=== PATIENT | female | born 1955 | race Caucasian/White ===

== ENCOUNTER 2017-10-16 15:30 | Outpatient (RCR) | payer OTHER, SELFPAY ==
--- NOTE | 2017-08-11 10:57 | HP.PTEVAL_ITS ---
Patient's Visit Information ROOSEVELT ROJAS is a 62 year old F referred to Physical Therapy by Nelson Purdy DPM with a diagnosis of L plantar fascitis. Date of Evaluation: 08/11/17 Physical Therapist: Santo Candelaria PT, - Visit Plan Frequency: 2x /Week Duration: 4 Weeks Plan: Start with ultrasound then perform stretching and soft tissue work to plantar fascia and triceps surae. Joint mobilizations to talocrual joint. Check hip mobility in future. - Subjective Subjective: Pt is 62 y/o female with diagnosis of plantar fascitis. This started about 4-5 weeks ago with no LAM. She was in a walking boot for about 3 weeks and just progressed to the shoe with inserts about a week ago. This affects her walking and standing quite a bit. She denies any history of this. Low back has been bothering her too a little since started. 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 PALPATION: TTP plantar fascia insertion, soleus palpation reproduces heel pain. ROM: R ankle DF/PF 4- 60, L ankle DF/PF 6-60. STRENGTH: B gross 5/5. ASSESSORY: Hypomobile posterior talocural glide. GAIT: ambulates with antalgic gait decrease stance time left - Goals Goal 1:: Pt will demonstrate 15 degrees of active dorsiflexion to normalize gait mechanics. Goal Time Frame: 4-6 Weeks Goal 2:: Pt will report ability to ambulate greater than 30 minutes without antalgic gait to improve tolerance with proglonged ambulation. Goal Time Frame: 4-6 Weeks Goal 3:: Pt will report 10 point gain on LEFS to demonstrate an improvement in function and QOL. Goal Time Frame: 4-6 Weeks Goal 4:: Pt will be independent with HEP to sustain gains made in the clinic. Goal Time Frame: 4-6 Weeks Goal 5:: Pt will ascend/descend 12 stairs with reciprocal gait pattern to normalize prior functional mobility. Goal Time Frame: 4-6 Weeks - Rehabilitation Potential Physical Therapy Diagnosis: Pt is a 62 y/o female with diagnosis of L plantar fascitis. This started about 4-5 weeks ago and is gradually improving. Objectively, she has impairments that include decreased passive dorsiflexion ROM , loss of medial longitudinal arch integrity, and decreased soft tissue mobility of the plantar fascia and triceps surae. She has activity limitations that include decreased tolerance with prolonged walking and standing. This affects her participation with work related and leisure activities. Pt will benefit from skilled PT to address the mentioned impairments to maximize functional potential. Rehabilitation Potential: Good - Anticipated Interventions Patient/Client Instruction: Educate patient on: Condition, Plan of Care For the Purpose of:: To decrease pain, To increase ROM, To improve muscle performance and motor function, To increase tolerance to activity/condition/ position, To improve ability of physical actions for home/community/work/leisure , To improve gait and locomotor functions, To decrease soft tissue restriction, To increase flexibility/ROM, To reduce risk of recurrence, To improve self management Therapeutic Exercise to Include: Strength training, Endurance training, Flexibilty training, Gait and locomotor training, Active ROM For the Purpose of:: To decrease pain, To increase ROM, To improve muscle performance and motor function, To increase tolerance to activity/condition/ position, To improve ability of physical actions for home/community/work/leisure , To improve gait and locomotor functions, To improve health of tissue, To decrease soft tissue restriction, To increase flexibility/ROM, To reduce risk of recurrence, To improve self management Manual Therapy Techniques to Include: Mobilization, Passive ROM, Soft tissue mobilization For the Purpose of:: To decrease pain, To increase ROM, To improve muscle performance and motor function, To increase tolerance to activity/condition/ position, To improve ability of physical actions for home/community/work/leisure , To improve gait and locomotor functions, To improve health of tissue, To decrease soft tissue restriction, To increase flexibility/ROM Cryotherapy (ice pack, ice massage): Yes Thermo therapy (hot pack): Yes Ultrasound (thermal/non thermal): Yes For the Purpose of:: To decrease pain, To decrease swelling/inflammation, To increase ROM, To improve nutrient delivery to tissue, To improve muscle performance and motor function, To increase tolerance to activity/condition/ position, To improve ability of physical actions for home/community/work/leisure , To improve gait and locomotor functions, To improve health of tissue, To decrease soft tissue restriction, To increase flexibility/ROM Thank you for the opportunity to evaluate your patient. For Medicare and Medicare HMO plans, please review the plan of care and approve it. It will need to be FAXED BACK to us at [phone] for Medicare purposes. Please let me know if there are questions or concerns regarding this plan of care. Physician Signature: Date:
--- NOTE | 2017-10-16 16:20 | HP.PTDCSUM_ITS ---
HP - PT D/C Summary It has been my pleasure to treat ROOSEVELT ROJAS under orders from Nelson Purdy DPM, for the diagnosis of L plantar fascitis for a total of 13 visit(s ). Discharge Date: Please see the following information for a summary of their discharge status. - Subjective Subjective: Doing better today less soreness middle calaneous. Wearing shoe today. Seen DR today. - Pain L foot Pain Intensity (Out of 10): 2 - Overall Improvement % Improvement: 70 - Objective Objective/Function: POSTURE: pes cavus. NEURO: denies parathesia/tingling. MMT : 4/5. GAIT: mild antalgic left foot. PALPATION: tender calcaneal mild/mod. ROM: DF 5 DEGREES,PF65 DEGREES,EV 5 DEGREES,INVERSION 35 - Goals Goal 1:: Pt will demonstrate 15 degrees of active dorsiflexion to normalize gait mechanics. Goal 2:: Pt will report ability to ambulate greater than 30 minutes without antalgic gait to improve tolerance with proglonged ambulation. Goal 3:: Pt will report 10 point gain on LEFS to demonstrate an improvement in function and QOL. Goal 4:: Pt will be independent with HEP to sustain gains made in the clinic. Goal 5:: Pt will ascend/descend 12 stairs with reciprocal gait pattern to normalize prior functional mobility. - Plan Plan: D/C TO HOME - D/C Information If there are questions or concerns regarding this patient's physical therapy, please feel free to call me at [phone]. Thank you for the referral of this patient. Sincerely, Santo Candelaria, PT,
== END 2017-10-16 19:00 | disposition home or self-care (01) ==
LOC: PT 15:30
PROVIDERS: Family Provider Student in an Organized Health Care Education/Training Program; PCP Student in an Organized Health Care Education/Training Program; Visit Provider Podiatrist Foot & Ankle Surgery
DX: M72.2 Plantar fascial fibromatosis (principal)
CPT/HCPCS: 97035; 97140; 97162; 97530

== ENCOUNTER 2020-03-18 16:30 | Outpatient (RCR) | payer OTHER, SELFPAY ==
--- NOTE | 2019-12-18 17:01 | HP.PTEVAL_ITS ---
Patient's Visit Information ROOSEVELT ROJAS is a 64 year old F referred to Physical Therapy by Dr. Kendall Leal MD with a diagnosis of R shoulder impingement.. Date of Evaluation: 12/18/19 Physical Therapist: Derrek Sewell, OSIELT, OCS, CSCS - Visit Plan Frequency: 1-2x /Week Duration: 4 Weeks Plan: weekly to 2x/week for 2-4 weeks for. 1. progression weekly of home ROM to strengthening of posture and RC and scap. May need to increase frequency for mobs, US, if not improving >60% by next session. - Subjective Fell and hurt R shoulder November 17. Fell going up 3rd flight of stairs and tripped on straps in bag. she did not fall to ground but ran R shoulder into wall. Hurt immeidately and no previous history. Made it throught the day and then urgent care that pm. X ray and no broken bones. Started to feel better so she cancelled f/u and then got worse again. Referred to Dr. Leal who gave an injection one week ago which took care of 70% of it. Has more movement but reaching up at [facility] still hurts as does washing back. 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 Has not missed work but hard to carry purse or bag. Can type OK. Getting dresed is easier since injection but is not easy or perfect. Reaching for coffee cup on second shelf is hard. Sleep is not terrible but uncomfy when awake, does not wake her up. Any reaching into dryer or [place] is hard. Comfortable at rest. - Pain R shoulder Pain Intensity (Out of 10): 1 Pain Intensity Range: 0, 6 - Objective Fw head and forward scapular posture, tightness in pectorals. Cervical aROM WFL and without pain. L UE AROM WFL. R shoulder arom elevation painful at 110 but can go all the way, ext rot 45, L 65. IR slow on R but painful and full. elbow and wrist WFL adn without pain. reflexes 2/3 bi and tri. Sensation wNL to gross light touch. + HK and + neer impingement tests. - drop arm. - ext rotation lag test. - sulcus. Tenderness to aplaption maximally over supraspinatus tendon on R. - Goals Goal 1:: Full UE AROM without pain Goal Time Frame: 2-4 Weeks Goal 2:: Pt feel pain 95% better at 1/10 at wrost and manageable Goal Time Frame: 4-6 Weeks Goal 3:: Reach for coffee and across desk without pain with R arm. Goal Time Frame: 4-6 Weeks Goal 4:: I appropriate HEP to minimize future problems. Goal Time Frame: 4-6 Weeks - Rehabilitation Potential Physical Therapy Diagnosis: R shoulder impingement. Rehabilitation Potential: Good - Anticipated Interventions Patient/Client Instruction: Educate patient on: Condition, Plan of Care For the Purpose of:: To decrease pain, To increase ROM, To improve muscle performance and motor function, To improve performance and independence with ADL's, To improve ability of physical actions for home/community/work/leisure Therapeutic Exercise to Include: Strength training, Postural training, Flexibilty training, Neuromotor development, Passive ROM, Active ROM, Scapular Strength/Stabilization For the Purpose of:: To decrease pain, To increase ROM, To improve muscle performance and motor function, To increase tolerance to activity/condition/position, To improve ability of physical actions for home/community/work/leisure Manual Therapy Techniques to Include: Mobilization, Soft tissue mobilization For the Purpose of:: To increase ROM, To improve muscle performance and motor function, To increase tolerance to activity/condition/position Cryotherapy (ice pack, ice massage): Yes Ultrasound (thermal/non thermal): Yes For the Purpose of:: To decrease pain, To increase ROM Thank you for the opportunity to evaluate your patient. For Medicare and Medicare HMO plans, please review the plan of care and approve it. It will need to be FAXED BACK to us at [phone] for Medicare purposes. For Medicare only, by signing this I certify the plan of care. Please let me know if there are questions or concerns regarding this plan of care. Physician Signature: Date:_
--- NOTE | 2020-01-23 17:02 | HP.PTREVAL ---
Dr. Kendall Leal MD, It has been my pleasure to treat ROOSEVELT ROJAS over the last 4 visits for R shoulder impingement.. Please see the progress note below for an update on the physical therapy plan of care! Subjective: Exercises one time per day. Not sure how well she is doing. Still hurts at times at random. Has been better avoiding aggravating activities. Reaching across body still hurts. arm got tired changing radio stations in car. Sleep is OK with the shoulder. Frustrated with lack of progress. Objective/Function: 140 aROM R shoulder and abduction, stiff at end range with firm end feel and painful. Fairly comfortable at rest. 50 external rotation. Hesitant to lift R UE. Reports compliance with ex but frustration with still painful.Wants to try more agggressive therapy vs back to doctor. Goals still appropriate for new POC over next 4 weeks. Plan Plan: 2-3x/week for 2-4 weeks for. 1. US nonthermal R supra. 2. Manual therapy for mobs inf and post and anterior grade 4 and PROM/arm pull to R UE. 3. progress strength of shoulder(pt doing phase 3 and LLA flexion, mil press at home) Goals Goal 1:: Full UE AROM without pain Goal Time Frame: 2-4 Weeks Goal Progress: slow progress, approp Goal 2:: Pt feel pain 95% better at 1/10 at wrost and manageable Goal Time Frame: 4-6 Weeks Goal Progress: 50% approp. Goal 3:: Reach for coffee and across desk without pain with R arm. Goal Time Frame: 4-6 Weeks Goal Progress: still hurts Goal 4:: I appropriate HEP to minimize future problems. Goal Time Frame: 4-6 Weeks Goal Progress: started. Anticipated Interventions Patient/Client Instruction: Educate patient on: Condition, Plan of Care For the Purpose of:: To decrease pain, To increase ROM, To improve muscle performance and motor function, To improve performance and independence with ADL's, To improve ability of physical actions for home/community/work/leisure Therapeutic Exercise to Include: Strength training, Postural training, Flexibilty training, Neuromotor development, Passive ROM, Active ROM, Scapular Strength/Stabilization For the Purpose of:: To decrease pain, To increase ROM, To improve muscle performance and motor function, To increase tolerance to activity/condition/position, To improve ability of physical actions for home/community/work/leisure Manual Therapy Techniques to Include: Mobilization, Soft tissue mobilization For the Purpose of:: To increase ROM, To improve muscle performance and motor function, To increase tolerance to activity/condition/position Cryotherapy (ice pack, ice massage): Yes Ultrasound (thermal/non thermal): Yes For the Purpose of:: To decrease pain, To increase ROM Please do not hesitate to contact me at [phone] by phone or if you have questions or concerns regarding this new plan of care! Sincerely, Derrek Sewell, DPT, OCS, CSCS
--- NOTE | 2020-02-13 10:03 | HP.PTREVAL ---
Dr. Kendall Leal MD, It has been my pleasure to treat ROOSEVELT ROJAS over the last 10 visits for R shoulder impingement.. Please see the progress note below for an update on the physical therapy plan of care! Subjective: No pain this morning. Had some last night with exercises. Slept on it wrong bothered her at night. Objective/Function: Full ext rotationa dn flexion/abd with slight pain end range. IR to psis to start then to L5 after stretching, very painful. Pt comfortable at rest. Plan Plan: 2x/week for 3 weeks for continue US adn mnaual and IR stretching which has been very helpful. Monitor home strengthening. Fair prognosis Goals Goal 1:: Full UE AROM without pain Goal Time Frame: 2-4 Weeks Goal Progress: Progressing Goal 2:: Pt feel pain 95% better at 1/10 at wrost and manageable Goal Time Frame: 4-6 Weeks Goal Progress: 85% Goal 3:: Reach for coffee and across desk without pain with R arm. Goal Time Frame: 4-6 Weeks Goal Progress: Progressing Goal 4:: I appropriate HEP to minimize future problems. Goal Time Frame: 4-6 Weeks Goal Progress: Goal Met Goal 5:: Pt feel 95% back to normal Goal Time Frame: 2-4 Weeks Goal Progress: NEW GOAL. Anticipated Interventions Patient/Client Instruction: Educate patient on: Condition, Plan of Care For the Purpose of:: To decrease pain, To increase ROM, To improve muscle performance and motor function, To improve performance and independence with ADL's, To improve ability of physical actions for home/community/work/leisure Therapeutic Exercise to Include: Strength training, Postural training, Flexibilty training, Neuromotor development, Passive ROM, Active ROM, Scapular Strength/Stabilization For the Purpose of:: To decrease pain, To increase ROM, To improve muscle performance and motor function, To increase tolerance to activity/condition/position, To improve ability of physical actions for home/community/work/leisure Manual Therapy Techniques to Include: Mobilization, Soft tissue mobilization For the Purpose of:: To increase ROM, To improve muscle performance and motor function, To increase tolerance to activity/condition/position Cryotherapy (ice pack, ice massage): Yes Ultrasound (thermal/non thermal): Yes For the Purpose of:: To decrease pain, To increase ROM Please do not hesitate to contact me at [phone] by phone or if you have questions or concerns regarding this new plan of care! Sincerely, Derrek Sewell, DPT, OCS, CSCS
--- NOTE | 2020-03-18 17:03 | HP.PTDCSUM_ITS ---
It has been my pleasure to treat ROOSEVELT ROJAS referred by Dr. Kendall Leal MD, with the diagnosis of R shoulder impingement. for a total of 16 visit(s). Discharge Date: 03/18/20 Please see the following information for a summary of their discharge status. Subjective: Twinges now and then. Pain with reaching for bag persists. Overall 85% better. Not painfree though. R shoulder Pain Intensity (Out of 10): 2 % Improvement: 85 Objective/Function: 152 AROM flexion, 155 abduction with encouragement. Pain at end ranges. 78 ext rotation, L5 IR but hesitant. Strength is 4- r ext rottion, 4 IR, slight pain ext rotation. flexion and abduction are 4- with some minor d iscomfort. Overall much better than day one but progres has stagnated. Pt will continue HEP and contact doctor if needs more intervention. Goal 1:: Full UE AROM without pain Goal Progress: stagnant but functional Goal 2:: Pt feel pain 95% better at 1/10 at wrost and manageable Goal Progress: 85% Goal 3:: Reach for coffee and across desk without pain with R arm. Goal Progress: stagnant Goal 4:: I appropriate HEP to minimize future problems. Goal Progress: noncompliant, met Goal 5:: Pt feel 95% back to normal Goal Progress: Not Progressing Plan: d/c to HEP Discharge Comments: Pt to continue HEP and contact doctor if situation worsens. If there are questions or concerns regarding this patient's physical therapy, please feel free to call me at [phone]. Thank you for the referral of this patient. Sincerely, Derrek Sewell, DPT, OCS, CSCS
== END 2020-03-18 19:00 | disposition home or self-care (01) ==
LOC: PT 16:30
PROVIDERS: PCP Student in an Organized Health Care Education/Training Program; Referring Provider Orthopaedic Surgery; Visit Provider Orthopaedic Surgery
DX: M75.41 Impingement syndrome of right shoulder (principal); M25.511 Pain in right shoulder
CPT/HCPCS: 97035; 97110; 97140; 97161; 97164; 97530

== ENCOUNTER 2023-01-05 15:49 | Emergency (ER) | payer MEDICARE, SELFPAY ==
[2023-01-05 15:50] VITALS: BP 120/72; PULSE 84; RESP 16; TEMP 36.8; O2SAT 98; BMI 30.6
--- NOTE | 2023-01-05 16:20 | RAD_ITS ---
STUDY: X-RAY - LEFT KNEE REASON FOR EXAM: Female, 67 years old. fall TECHNIQUE: 3 view(s) of the knee. COMPARISON: None. FINDINGS: Normal visualized distal femur. Normal visualized proximal tibia and fibula. Normal proximal tibiofibular articulation. Mildly narrowed medial femorotibial compartment. Normal lateral femorotibial compartment. Normal patellofemoral articulation. The soft tissue structures are unremarkable. RAD/Knee 4 or More Views IMPRESSION: Mild degenerative change. No acute fracture or other significant bony pathology Electronically Signed: Lucio Geiger MD at 16:47 EST Reading Location ID and State: [address] [place] [address] Tel , Service support ,
--- NOTE | 2023-01-05 20:34 | EDS_ITS ---
HPI History of Present Illness HPI Narrative: Patient presents after a fall that occurred yesterday. Patient states she tripped and fell and landed on her left knee. Patient states her pain is sharp and aching. Patient states it is worse with weightbearing. Patient states it is better with rest. Patient denies any paresthesias or weakness. Patient admits to some mild pain over the right upper extremity. Patient thinks she caught herself with her right arm. Patient denies any other injuries. Chief Complaint: Fall Informant: patient Occured/Mechanism Mechanism/Context: Yes fall Onset/Context/Timing Onset: Yesterday Context: Sudden Onset Timing: Continuous Quality of Pain: Sharp and Aching Location: Left knee Worsened by: Weightbearing Relieved by: Rest Associated Symptoms Associated Symptoms: Negative for Parasthesia or Weakness PFSH PFSH Medical History no medical history no medical history Home Medications albuterol sulfate 90 mcg/actuation aerosol inhaler (Ventolin HFA) 1 puff inhalation Q6H PRN PRN Sob &/Or Wheezing 10/14/14 [History Last Taken Unknown] amlodipine 5 mg tablet 5 mg PO DAILY 10/14/14 [History Last Taken 09/02/16] cholecalciferol (vitamin D3) 125 mcg (5,000 unit) capsule 5,000 unit PO DAILY 10/14/14 [History Last Taken 09/02/16] metformin 1,000 mg tablet 1,000 mg PO BIDCM 10/14/14 [History Last Taken 09/02/16] omeprazole 10 mg capsule,delayed release 10 mg PO DAILY 10/14/14 [History Last Taken 09/02/16] sertraline 25 mg tablet (Zoloft) 25 mg PO BID 10/14/14 [History Last Taken 09/02/16] sitagliptin phosphate 25 mg tablet (Januvia) 25 mg PO QHS 10/14/14 [History Last Taken 09/01/16] trazodone 50 mg tablet 50 mg PO QHS 10/14/14 [History Last Taken 09/01/16] valsartan 160 mg tablet 160 mg PO QHS 10/14/14 [History Last Taken 09/01/16] gabapentin 300 mg capsule (Neurontin) 300 mg PO QHS 09/02/16 [History Last Taken 09/01/16] hydrocodone-acetaminophen 5-325mg 5mg-325mg 1 tab PO Q6H PRN PRN Pain ##10 09/02/16 [Rx Last Taken Unknown] insulin glargine 100 unit/mL (3 mL) subcutaneous pen (Lantus Solostar U-100 Insulin) 25 unit SQ QHS 09/02/16 [History Last Taken 09/01/16] hydrocodone-acetaminophen 5-325mg 5mg-325mg 1 tab PO Q6H PRN PRN Pain 3 days #10 TABLETS 01/05/23 [Rx Last Taken Unknown] Allergy/AdvReac Type Severity Reaction Status Date / Time gluten Allergy Upset Verified 01/05/23 15:50 Stomach Penicillins [PCN] Allergy Rash Verified 01/05/23 15:50 Sulfa (Sulfonamide Allergy Rash Verified 01/05/23 15:50 Antibiotics) chocolate flavor AdvReac stuffiness Verified 01/05/23 15:50 Surgical History (Updated 01/05/23 @ 21:[address] Derrek Rebolledo DO) Hx of cardiac catheterization Hx of cataract surgery Social History Smoking Status: Never smoker ROS ROS ED Constitutional Constitutional ED: Denies chills or fever(s) Eyes Eyes: Denies blurry vision or change in vision ENT ENT ED: Reports sore throat; Denies rhinorrhea Cardiovascular Cardiovascular: Denies chest pain or palpitations Respiratory/Chest Respiratory/Chest: Denies cough or dyspnea Gastrointestinal Gastrointestinal: Denies nausea or vomiting Genitourinary Genitourinary ED: Denies dysuria or hematuria Musculoskeletal Musculoskeletal: Reports neck pain; Denies back pain Integumentary Denies abscess or rash Neurologic Neurologic: Denies headache(s) or weakness Allergic/Immunologic Allergic/Immunologic ED: Denies mouth swelling or urticaria EXAM Physical Exam Const Vital Signs: 01/05/23 15:50 01/05/23 19:28 Temperature 98.2 F Temperature Source Temporal Pulse Rate 84 Respiratory Rate 16 Respiratory Effort Normal Non-Labored Respiratory Depth Normal Respiratory Pattern Normal Blood Pressure 120/72 Blood Pressure Mean 88 Pulse Ox 98 Oxygen Delivery Method Room Air Room Air Positive well nourished and well developed General Appearance ED: well developed and NAD HEENT Reports moist mucous membranes Neck full ROM and supple Extremity Extremity Narrative: There is tenderness, edema, and ecchymosis over the anterior aspect of the left knee. There is a very superficial abrasion over the anterior aspect of the left knee. Extensor mechanism is intact. There is no joint effusion noted. Range of motion is limited in all motions of the left knee secondary to pain. There is no laxity appreciated. Patient is guarding on exam however. Patient was intact to light touch bilaterally in the lower extremities. Length is 5/5 bilaterally in the lower extremities. Pedal pulses are equal bilaterally. Neuro oriented x3, CN's II-XII intact bilaterally, moves all extremities and no sensory deficits noted Sensorium / Orientation: alert Motor Exam: strength 5/5 throughout Psych mental status grossly normal MDM MDM MDM Narrative Medical decision making narrative: Differential diagnosis includes contusion, sprain, and fracture. X-rays of the left knee will be obtained to assess for fracture. Radiography Diagnostic Testing: Clinical Impression(s) from Imaging Studies Knee X-Ray 01/05/23 16:20 IMPRESSION: Mild degenerative change. No acute fracture or other significant bony pathology Electronically Signed: Lucio Geiger MD at 16:47 EST Reading Location ID and State: [address] [place] [address] Tel , Service support , X-rays of the left knee were obtained. There are 4 views. On my independent interpretation, there is no acute fracture. There is no joint effusion noted. There are some mild degenerative changes noted. Radiologist also interpreted the x-rays and agrees. Treatment and Re-Evaluation Narrative: Patient was advised of her findings. Patient was instructed to ice and elevate the left knee. Patient was given a knee immobilizer. Patient was given a prescription for a short course of [place]. Patient was instructed to follow-up with her primary care physician in 5 to 7 days. Patient understood and was agreeable with the plan. All questions were answered. Discharge Plan Triage Chief Complaint: Fall ED Provider: Derrek Rebolledo Dx/Rx/DC Orders Clinical Impression: Fall, Contusion of left knee, initial encounter Instructions: ED Soft Tissue Contusion Prescriptions: New hydrocodone-acetaminophen [hydrocodone-acetaminophen] 5-325 mg tablet 1 tab PO Q6H PRN PRN (Reason: Pain) 3 Days Qty: 10 0RF No Action trazodone 50 MG tablet 50 mg PO QHS Patient Comments: sleep aid amlodipine 5 MG tablet 5 mg PO DAILY Patient Comments: blood pressure omeprazole 10 MG capsule 10 mg PO DAILY Patient Comments: gerd metformin 1,000 MG tablet 1,000 mg PO BIDCM Patient Comments: diabetes valsartan 160 MG tablet 160 mg PO QHS Patient Comments: blood pressure sertraline [Zoloft] 25 MG tablet 25 mg PO BID Patient Comments: depression sitagliptin phosphate [Januvia] 25 MG tablet 25 mg PO QHS Patient Comments: diabetes albuterol sulfate [Ventolin HFA] 1 INHALER inhaler 1 puff inhalation Q6H PRN PRN (Reason: Sob &/Or Wheezing) Patient Comments: shortness of breath cholecalciferol (vitamin D3) 5,000 UNIT capsule 5,000 unit PO DAILY Patient Comments: supplement gabapentin [Neurontin] 300 MG capsule 300 mg PO QHS insulin glargine [Lantus Solostar U-100 Insulin] 100 UNIT/ML insulin pen 25 unit SQ QHS hydrocodone-acetaminophen 1 TABLET tablet 1 tab PO Q6H PRN PRN (Reason: Pain) Qty: 10 0RF Primary Care Provider: Marlon Jeffries Referrals: Marlon Jeffries DO [Primary Care Provider] - 5-7 Days Disposition Disposition: Home, Self Care
[2023-01-05] MEDS: HYDROcodone Bitartrate/Apap 5/325 Tablet PO (21:43)
[2023-01-05 21:52] VITALS: BP 136/77; PULSE 69; RESP 14; O2SAT 97
== END 2023-01-05 21:53 | disposition home or self-care (01) ==
PROVIDERS: Emergency Provider Emergency Medicine; PCP Student in an Organized Health Care Education/Training Program; Visit Provider Emergency Medicine
DX: S80.02XA Contusion of left knee, initial encounter (principal); M79.601 Pain in right arm; J06.9 Acute upper respiratory infection, unspecified; W19.XXXA Unspecified fall, initial encounter
CPT/HCPCS: 73564; 99282; A4216

== ENCOUNTER 2023-05-23 09:07 | Emergency (ER) | payer MEDICARE, SELFPAY ==
[2023-05-23 09:07] VITALS: BP 132/70; PULSE 94; RESP 14; TEMP 37.2; O2SAT 97; BMI 30.4
--- NOTE | 2023-05-23 09:17 | EX.ED.VIS.UR ---
HPI HPI - URI History of Present Illness Chief Complaint: Shortness of Breath Detail of Chief Complaint: Productive cough, wheezing, upper respiratory tract infectious symptoms and Informant: patient Onset/Context/Timing Onset: Days Context: Sudden Onset Timing: Continuous and Waxes and wanes Quality: Upper respiratory symptoms with nausea and vomiting Location: Respiratory and GI Current Severity: Mild Maximum Severity: Moderate Worsened by: Not Worsened By Swallowing, Eating Solids or Drinking Liquids Relieved by: Not Relieved By Tylenol Associated Symptoms Associated Symptoms: Positive for Nasal Congestion, Headache, Myalgias, Vomiting, Shortness of Breath and Productive Cough (Green thick sputum); Negative for Sinus Pressure, Diarrhea, Chest Pain or Hemoptysis Narrative Narrative: Patient is 88-year-old woman. She was in contact with 4 of her grandchildren who were sick with viral-like symptoms. She reports documented temperature to 102. She complains of aches, headache, rhinorrhea, congestion and sore throat. She had a change in voice. She has productive cough of green-colored sputum. She denies chest discomfort. She does report nausea and vomiting. Denies hematemesis or coffee-ground emesis. She denies diarrhea. She denies dysuria, frequency, urgency or hematuria. She endorses decreased urine output. She does endorse thirst and dry mouth. She is diabetic, type II on insulin. She denies rash. Prior similar symptoms: Yes Recent Illness/Hospitalization: No ROS ROS ED Constitutional Constitutional ED: Reports chills, fever(s), sweats and other Details: Documented Tmax 102.0 ?F ; Denies subjective Eyes Eyes: Denies blurry vision, change in vision or diplopia ENT ENT ED: Reports rhinorrhea and sore throat; Denies ear pain Cardiovascular Cardiovascular: Denies chest pain, orthopnea, palpitations, paroxysmal nocturnal dyspnea or racing heartbeat Respiratory/Chest Respiratory/Chest: Reports cough, dyspnea and dyspnea on exertion; Denies orthopnea or paroxysmal nocturnal dyspnea Gastrointestinal Gastrointestinal: Reports abdominal pain, nausea and vomiting; Denies constipation, diarrhea or melena Genitourinary Genitourinary ED: Denies dysuria, hematuria or urinary frequency Musculoskeletal Musculoskeletal: Denies arthralgias, back pain or myalgias Neurologic Neurologic: Reports weakness Hematologic/Lymphatic Hematologic/Lymphatic: Denies easy bleeding or easy bruising PFSH PFSH Home Medications albuterol sulfate 90 mcg/actuation aerosol inhaler (Ventolin HFA) 1 puff inhalation Q6H PRN PRN Sob &/Or Wheezing 10/14/14 [History Last Taken Unknown] amlodipine 5 mg tablet 5 mg PO DAILY 10/14/14 [History Last Taken 09/02/16] cholecalciferol (vitamin D3) 125 mcg (5,000 unit) capsule 5,000 unit PO DAILY 10/14/14 [History Last Taken 09/02/16] metformin 1,000 mg tablet 1,000 mg PO BIDCM 10/14/14 [History Last Taken 09/02/16] omeprazole 10 mg capsule,delayed release 10 mg PO DAILY 10/14/14 [History Last Taken 09/02/16] sertraline 25 mg tablet (Zoloft) 25 mg PO BID 10/14/14 [History Last Taken 09/02/16] sitagliptin phosphate 25 mg tablet (Januvia) 25 mg PO QHS 10/14/14 [History Last Taken 09/01/16] trazodone 50 mg tablet 50 mg PO QHS 10/14/14 [History Last Taken 09/01/16] valsartan 160 mg tablet 160 mg PO QHS 10/14/14 [History Last Taken 09/01/16] gabapentin 300 mg capsule (Neurontin) 300 mg PO QHS 09/02/16 [History Last Taken 09/01/16] hydrocodone-acetaminophen 5-325mg 5mg-325mg 1 tab PO Q6H PRN PRN Pain ##10 09/02/16 [Rx Last Taken Unknown] insulin glargine 100 unit/mL (3 mL) subcutaneous pen (Lantus Solostar U-100 Insulin) 25 unit SQ QHS 09/02/16 [History Last Taken 09/01/16] hydrocodone-acetaminophen 5-325mg 5mg-325mg 1 tab PO Q6H PRN PRN Pain 3 days #10 TABLETS 01/05/23 [Rx Last Taken Unknown] levofloxacin 500 mg tablet 500 mg PO DAILY #6 tabs 05/23/23 [Rx Last Taken Unknown] Allergy/AdvReac Type Severity Reaction Status Date / Time gluten Allergy Upset Verified 05/23/23 09:08 Stomach Penicillins [PCN] Allergy Rash Verified 05/23/23 09:08 Sulfa (Sulfonamide Allergy Rash Verified 05/23/23 09:08 Antibiotics) chocolate flavor AdvReac stuffiness Verified 05/23/23 09:08 Surgical History Hx of cardiac catheterization Hx of cataract surgery Social History (Updated 05/23/23 @ 09:[address] Rico Moody MD) household members: none Smoking Status: Never smoker substance use type: does not use EXAM Physical Exam Const Vital Signs: 05/23/23 09:07 05/23/23 09:46 05/23/23 11:24 Temperature 99 F 100.3 F H Temperature Source Temporal Oral Pulse Rate 94 88 Respiratory Rate 14 18 Respiratory Effort Short of Breath Respiratory Depth Normal Blood Pressure 132/70 H 134/70 H Blood Pressure Mean 90 91 Pulse Ox 97 92 Oxygen Delivery Method Room Air Room Air Positive well nourished, well developed and obese Constitutional Narrative: Patient appears ill. She does not appear toxic. General Appearance ED: well developed; Negative for cyanotic or diaphoretic Nutritional Appearance: obese HEENT Reports dry mucous membranes HEENT Narrative: Uvula is midline. No deviation with protrusion. There is no erythema or exudate. Patient does have nasal congestion/rhinorrhea. normocephalic and atraumatic Mouth ED: Yes dry mucous membranes Mouth: dry mucous membranes Eyes PERRL and EOMs intact bilaterally General Eye ED: Negative for pale conjunctiva or scleral icterus Neck no lymphadenopathy, supple, no meningeal signs and no JVD Resp normal respiratory effort Resp Narrative: Patient with adventitial breath sounds right greater than left. There is no expiratory wheezing noted this time. She did use her inhaler. Cardio S1 normal heart sound, S2 normal heart sound and no murmurs Rate: regular rate Rhythm: regular rhythm GI non-tender, non-distended and no masses Auscultation: normoactive bowel sounds Palpation: soft Extremity normal to inspection and full ROM Neuro oriented x3 and CN's II-XII intact bilaterally Sensorium / Orientation: alert Psych mental status grossly normal Skin General Skin Exam: Negative for jaundice Lesions: no lesions Rashes: no rashes MDM MDM MDM Narrative Medical decision making narrative: With documented fever and productive cough with green-colored sputum will obtain chest x-ray to evaluate for pneumonia. Since she is diabetic obtain BMP to assess glucose, anion gap and electrolytes as well as renal function. CBC to assess white count differentia Clinically she appears dehydrated. 1 L of normal saline was ordered. Zofran was ordered for her nausea and vomiting. Rapid antigen for COVID, influenza and RSV were negative. Since patient has an infiltrate productive cough febrile will treat with oral antibiotics. Lab Data Attestation: I reviewed the patient's lab results. Lab results narrative: White count slight elevated 11.8 thousand with mild shift. There is no bandemia. H&H is 10.8 and 32.7 with normal indices. Basic metabolic panel is remarked for glucose of 163 with a normal CO2 and anion gap. She is diabetic, type II on insulin. Labs: Laboratory Results - last 24 hr 05/23/23 09:40 WBC 11.8 H RBC 3.80 L Hgb 10.8 L Hct 32.7 L MCV 86.1 MCH 28.4 MCHC 33.0 RDW Std Deviation 39.8 RDW Coeff of Fly 12.8 Plt Count 179 MPV 10.3 Immature Gran % (Auto) 0.700 Neut % (Auto) 76.8 H Lymph % (Auto) 13.4 L [place] % (Auto) 8.0 Eos % (Auto) 0.8 Baso % (Auto) 0.3 Absolute Neuts (auto) 9.1 H Absolute Lymphs (auto) 1.58 Nucleated RBC % 0 Sodium 133 L Potassium 3.6 Chloride 100 Carbon Dioxide 27.0 Anion Gap 6 BUN 11 Creatinine 0.88 Estim Creat Clear Calc 59.01 Est GFR (MDRD) Af Amer 82 Est GFR (MDRD) Non-Af 68 BUN/Creatinine Ratio 12.5 Glucose 163 H Calcium 9.3 Radiography Chest X-Ray - ED: 2 View and Read by ED Physician (Is slightly rotated. There is increased interstitial markings left upper lobe. Suspect this is due to the fact that the inspiratory volume is not ideal and she is rotated. Cardiac silhouette and size normal. Perihilar region normal. Osseous structures unremarkable. There is no effusion noted.) Diagnostic Testing: Clinical Impression(s) from Imaging Studies Chest X-Ray 05/23/23 10:10 IMPRESSION: Focal left upper lobe infiltrate. Follow-up recommended. Electronically Signed: Rashawn Drummond MD at 10:46 EDT , Treatment and Re-Evaluation Narrative: Patient's nurse asked if she could use her inhaler. Nurse was informed that she could. When I examined her she had no wheezing. Curb 65 score is 1. She is considered low risk for 30-day mortality of 2.7%. Therefore she will be discharged home. Discharge Plan Triage Chief Complaint: Shortness of Breath ED Provider: Rico Moody Dx/Rx/DC Orders Clinical Impression: Left upper lobe pneumonia, Hyperlipidemia, Hypertension, Fever, Controlled type 2 diabetes mellitus with hyperglycemia, with long-term current use of insulin Instructions: ED Pneumonia (Adult) Prescriptions: New levofloxacin [levofloxacin] 500 mg tablet 500 mg PO DAILY Qty: 6 0RF No Action trazodone 50 MG tablet 50 mg PO QHS Patient Comments: sleep aid amlodipine 5 MG tablet 5 mg PO DAILY Patient Comments: blood pressure omeprazole 10 MG capsule 10 mg PO DAILY Patient Comments: gerd metformin 1,000 MG tablet 1,000 mg PO BIDCM Patient Comments: diabetes valsartan 160 MG tablet 160 mg PO QHS Patient Comments: blood pressure sertraline [Zoloft] 25 MG tablet 25 mg PO BID Patient Comments: depression sitagliptin phosphate [Januvia] 25 MG tablet 25 mg PO QHS Patient Comments: diabetes albuterol sulfate [Ventolin HFA] 1 INHALER inhaler 1 puff inhalation Q6H PRN PRN (Reason: Sob &/Or Wheezing) Patient Comments: shortness of breath cholecalciferol (vitamin D3) 5,000 UNIT capsule 5,000 unit PO DAILY Patient Comments: supplement gabapentin [Neurontin] 300 MG capsule 300 mg PO QHS insulin glargine [Lantus Solostar U-100 Insulin] 100 UNIT/ML insulin pen 25 unit SQ QHS hydrocodone-acetaminophen 1 TABLET tablet 1 tab PO Q6H PRN PRN (Reason: Pain) Qty: 10 0RF hydrocodone-acetaminophen [hydrocodone-acetaminophen] 5-325 mg tablet 1 tab PO Q6H PRN PRN (Reason: Pain) 3 Days Qty: 10 0RF Primary Care Provider: Marlon Jeffries Referrals: Marlon Jeffries DO [Primary Care Provider] - 3-5 Days Disposition Disposition: Home, Self Care
[2023-05-23] MEDS: 0.9% Normal Saline (1000mL) 1,000 ML 1000 ML IV (09:37)
[2023-05-23] MEDS: Ondansetron 4 MG/2 ML Vial IV (09:37)
[2023-05-23 09:59] LABS: Absolute Lymphocyte Count 1.58 X10^3/uL (0.83-4.51); Absolute Neutrophil Count 9.1 X10^3/uL (2.0-7.7); Basophil# 0.03 X10^3/uL; Basophil% 0.3 % (0-1); Eosinophil# 0.09 X10^3/uL; Eosinophils% 0.8 % (0-5); Hematocrit 32.7 % (37-47); Hemoglobin 10.8 g/dL (12.0-15.0); Lymphocyte # 1.58 X10^3/ul (0.83-4.51); Lymphocyte % 13.4 % (19-41); Mean Corpuscular Hgb 28.4 pg (27.0-32.0); Mean Corpuscular Volume 86.1 fL (81-99); Mean Platelet Vol. 10.3 fl (6.2-12.0); Monocyte# 0.95 X10^3/uL; NRBC Flagged by Analyzer 0 % (0-5); Neutrophil # 9.09 X10^3/uL (2.7-7.7); Neutrophil % 76.8 % (47-70); Platelet Count 179 K/mm3 (150-450); RBC Distribution Width CV 12.8 % (11.6-14.6); RBC Distribution Width SD 39.8 fl (35.1-43.9); White Blood Count 11.8 K/mm3 (4.4-11.0)
--- NOTE | 2023-05-23 10:10 | RAD_ITS ---
STUDY: X-RAY CHEST REASON FOR EXAM: Female, 68 years old. Productive cough and fever TECHNIQUE: AP and lateral views of the chest. COMPARISON: Comparison is made with prior study dated September 02, 2016. FINDINGS: EKG electrodes are seen. Focal infiltrate is seen in the left upper lobe. Follow-up recommended. There is no demonstrated pleural abnormality. Normal size heart. Normal mediastinum and michael. Normal visualized pulmonary arteries. Normal visualized aortic arch and descending thoracic aorta. Normal visualized thoracic spine. Normal visualized ribs, clavicles, and shoulders. There is no demonstrated abnormality of the visualized soft tissue structures of the upper abdomen. RAD/Chest PA and Lateral IMPRESSION: Focal left upper lobe infiltrate. Follow-up recommended. Electronically Signed: Rashawn Drummond MD at 10:46 EDT ,
[2023-05-23 10:12] LABS: Anion Gap 6 (5-15); BUN 11 mg/dL (7-18); BUN/Creat Ratio 12.5 RATIO (10-20); Calcium,Total 9.3 mg/dL (8.5-10.1); Chloride 100 mmol/L (98-107); Creatinine, Serum 0.88 mg/dL (0.55-1.02); EST Glomerular Filtration Rate 68 mL/min (>60); Est Glom Filt Rate - Afr Amer 82 mL/min (>60); Estimated Creatinine Clearance 59.01 ml/min; Glucose 163 mg/dL (74-106); Potassium 3.6 mmol/L (3.5-5.1); Sodium Level 133 mmol/L (136-145)
[2023-05-23 11:24] VITALS: BP 134/70; PULSE 88; RESP 18; TEMP 37.9; O2SAT 92
[2023-05-23] MEDS: Acetaminophen 325 MG Tablet 650 MG PO (12:12)
[2023-05-23 12:14] VITALS: BP 117/60; PULSE 85; RESP 16; O2SAT 91
[2023-05-23 12:59] VITALS: BP 100/56; PULSE 82; RESP 18; TEMP 37.2; O2SAT 94
[2023-05-23] MEDS: levoFLOXacin 750 MG Tablet PO (12:59)
== END 2023-05-23 13:03 | disposition home or self-care (01) ==
PROVIDERS: Emergency Provider Emergency Medicine; PCP Student in an Organized Health Care Education/Training Program; Visit Provider Emergency Medicine
DX: J18.9 Pneumonia, unspecified organism (principal); E11.65 Type 2 diabetes mellitus with hyperglycemia; Z79.4 Long term (current) use of insulin; R51.9 Headache, unspecified; I10 Essential (primary) hypertension; E78.5 Hyperlipidemia, unspecified; E66.9 Obesity, unspecified
CPT/HCPCS: 71046; 80048; 85025; 87631; 96361; 96374; 99283; J2405

== ENCOUNTER 2024-02-26 13:22 | Observation (INO) | payer MEDICARE, SELFPAY ==
[2024-02-26] VITALS (10 sets, daily range): BP systolic 118–162; BP diastolic 57–88; PULSE 73–91; RESP 15–25; TEMP 36.3–36.7; O2SAT 96–100; BMI 29.9; BMI 27.8
--- NOTE | 2024-02-26 15:19 | CT_ITS ---
EXAM: CT CERVICAL SPINE WITHOUT INTRAVENOUS CONTRAST CLINICAL INDICATION: fall TECHNIQUE: Helically acquired images were obtained of the cervical spine without intravenous contrast. 2D reformatted images were reviewed. CTDIvol = ( 15.50 ) mGy, DLP = ( 292.77 ) mGycm This CT exam was performed using one or more of the following dose reduction techniques: automated exposure control, adjustment of the mA and/or kV according to patient size, and/or use of iterative reconstruction technique. COMPARISON: No relevant prior studies available. FINDINGS: VERTEBRAE: Unremarkable. No fracture. No traumatic subluxation. No discrete lytic or blastic abnormality. Normal alignment. Normal craniocervical junction and cervicothoracic junction. DISCS/SPINAL CANAL/NEURAL FORAMINA: Unremarkable. Disc heights are preserved. No critical stenosis. SOFT TISSUES: Focal nuchal ligament ossification at the C5 level. No prevertebral soft tissue swelling. LYMPH NODES: Unremarkable. No cervical adenopathy. LUNG APICES: Unremarkable as visualized. Clear. CT/Spine Cervical without Contras IMPRESSION: No evidence of acute cervical spinal fracture or spondylolisthesis. AIDOC was utilized to assist in identifying pertinent positive findings Electronically Signed: Trev Melendez MD at 16:28 EST ,
--- NOTE | 2024-02-26 15:19 | EKG12_ITS ---
Test Reason : HEAD INJURY Blood Pressure : */* mmHG Vent. Rate : 76 BPM Atrial Rate : 76 BPM P-R Int : 202 ms QRS Dur : 76 ms QT Int : 416 ms P-R-T Axes : 36 -24 9 degrees QTcB Int : 468 ms Normal sinus rhythm Minimal voltage criteria for LVH, may be normal variant ( R in aVL ) Possible Anterior infarct , age undetermined Abnormal ECG Confirmed by Emmanuel Wood ([id number]), news video editor MARIN NICOLE ([id number]) on 02/27/2024 1:26:41 PM Referred By: Confirmed By: Emmanuel Wood
--- NOTE | 2024-02-26 15:19 | CT_ITS ---
EXAM: CT HEAD WITHOUT INTRAVENOUS CONTRAST CLINICAL INDICATION: fall TECHNIQUE: Multiple axial images were obtained of the head without intravenous contrast. CTDIvol = ( 47.06 ) mGy, DLP = ( 872.68 ) mGycm This CT exam was performed using one or more of the following dose reduction techniques: automated exposure control, adjustment of the mA and/or kV according to patient size, and/or use of iterative reconstruction technique. COMPARISON: No relevant prior studies available. FINDINGS: BRAIN AND EXTRA-AXIAL SPACES: stroke. Periventricular small vessel ischemic change. No midline shift or hydrocephalus. Few small old infarcts involving the right and left basal ganglia ganglia. Diffuse parenchymal atrophy. No intra- or extra-axial hemorrhage. Posterior fossa structures are unremarkable. Basal cisterns are patent. BONES/JOINTS: Unremarkable. No discrete lytic or blastic abnormalities. SOFT TISSUES: Unremarkable. No acute intracranial hemorrhage, mass effect or edema. No evidence of acute cortical. VASCULATURE: Atherosclerotic calcifications of the carotid siphons and vertebrobasilar arteries. SINUSES: Unremarkable as visualized. Clear. MASTOID AIR CELLS: Visualized sinuses and mastoid air cells are clear. ORBITS: Visualized globes, extraocular muscles, optic nerves and retrobulbar fat appear unremarkable. CT/Brain/Head without Contrast IMPRESSION: 1. No evidence of acute intracranial pathology. 2. Diffuse involutional changes and chronic ischemic small vessel white matter disease. AIDOC was utilized to assist in identifying pertinent positive findings. Electronically Signed: Trev Melendez MD at 16:21 EST ,
--- NOTE | 2024-02-26 15:29 | EX.ED.DYSGE1 ---
HPI History of Present Illness Chief Complaint: Head Injury Narrative Narrative: Patient is a 69-year-old female with a past medical history of diabetes, hyperlipidemia, hypertension who presented to the emergency department chief complaint of fall down a set of stairs earlier today. Patient states that she was carrying down laundry earlier today around 1:00 PM when she fell down a set of stairs and landed face first. Patient states that she was able to get up afterwards. Patient states that she is unsure when her last tetanus shot was. Patient states that she has some mild headache but denies any other pain. Patient states that she has not taken thing for pain prior to arrival. Patient notes that she did not pass out lose consciousness. Patient did not have chest pain, shortness of breath, lightness dizziness prior to the fall. Patient denies any blood thinner medications PFSH PFS Home Medications ?Medication ?Instructions ?Recorded ?Last Taken ?Type albuterol sulfate 90 mcg/actuation 1 puff inhalation Q6H PRN PRN Sob 10/14/14 Unknown History aerosol inhaler (Ventolin HFA) &/Or Wheezing cholecalciferol (vitamin D3) 125 5,000 unit PO DAILY 10/14/14 02/26/24 History mcg (5,000 unit) capsule metformin 1,000 mg tablet 1,000 mg PO DAILY 10/14/14 02/26/24 History omeprazole 10 mg capsule,delayed 10 mg PO DAILY 10/14/14 02/26/24 History release gabapentin 300 mg capsule 300 mg PO QHS 09/02/16 02/25/24 History (Neurontin) insulin glargine 100 unit/mL (3 24 unit SQ QHS 09/02/16 02/25/24 History mL) subcutaneous pen (Lantus Solostar U-100 Insulin) ezetimibe 10 mg tablet 10 mg PO DAILY 02/26/24 02/26/24 History fluoxetine 10 mg capsule 20 mg PO DAILY 02/26/24 02/26/24 History losartan 25 mg tablet 25 mg PO DAILY 02/26/24 02/26/24 History montelukast 10 mg tablet 10 mg PO QHS 02/26/24 02/25/24 History pravastatin 40 mg tablet 40 mg PO QHS 02/26/24 02/25/24 History tirzepatide 12.5 mg/0.5 mL 12.5 mg subcut FR 02/26/24 02/23/24 History subcutaneous pen injector (Valente) trazodone 100 mg tablet 200 mg PO QHS 02/26/24 02/25/24 History Allergy/AdvReac Type Severity Reaction Status Date / Time gluten Allergy Upset Verified 02/26/24 13:23 Stomach Penicillins (PCN) Allergy Rash Verified 02/26/24 13:23 Sulfa (Sulfonamide Allergy Rash Verified 02/26/24 13:23 Antibiotics) chocolate flavor AdvReac stuffiness Verified 02/26/24 13:23 Surgical History Hx of cataract surgery Hx of cardiac catheterization Social History household members: none Smoking Status: Never smoker substance use type: does not use ROS ROS ED ROS Narrative Constitutional: Complains of headache as noted above denies lightheadedness, dizziness, fevers, chills Eyes: Denies change in vision double vision blurry vision Cardiovascular: Denies chest pain Respiratory: Denies cough wheezing shortness of breath Abdomen: Denies abdominal pain nausea vomit diarrhea : Denies any urinary symptoms Neurological: Denies numbness, weakness, tingling Musculoskeletal: Denies any pain Skin: Denies rashes or lesions EXAM Physical Exam Narrative Exam Narrative: General: Patient sitting in bed rest comfortably did not appear to be in acute distress Head: Atraumatic, normocephalic Eyes, ears, nose, throat: PERRL bilaterally, EOMI bilateral, no conjunctival injection noted, no no nasal septal hematomas noted bilaterally Neck: Soft, supple, trachea midline, no tenderness palpation midline of the cervical spine patient has full range of motion no pain elicited Cardiovascular: Regular rate and rhythm no murmurs gallops rubs noted Respiratory: Clear to auscultation bilaterally Abdomen: Soft, nondistended, no tense palpation, bowel sounds present x 4 Musculoskeletal: All bony prominences palpated and joints taken through full range of motion no pain elicited Extremities: +5/5 strength noted in the bilateral upper and lower extremities, radial pulses +2/4 in the bilateral per extremities Neurological: Patient following commands knew that she was at [facility] year is 2023 Skin: Patient has superficial abrasion noted to the left forehead and left infra orbital region no active bleeding noted no laceration to repair Const Vital Signs: 02/26/24 13:24 02/26/24 15:45 02/26/24 15:45 Temperature 97.3 F L Temperature Source Oral Pulse Rate 73 78 Respiratory Rate 18 15 Respiratory Effort Normal Respiratory Depth Normal Respiratory Pattern Normal Blood Pressure 125/77 H 157/83 H Blood Pressure Mean 93 107 Pulse Ox 100 97 Oxygen Delivery Method Room Air Room Air 02/26/24 16:56 02/26/24 17:26 02/26/24 17:30 Temperature Temperature Source Pulse Rate 78 80 80 Respiratory Rate 15 19 H 19 H Respiratory Effort Respiratory Depth Respiratory Pattern Blood Pressure 132/85 H 162/84 H 162/84 H Blood Pressure Mean 100 110 110 Pulse Ox 96 98 98 Oxygen Delivery Method Room Air Room Air Room Air 02/26/24 18:00 02/26/24 18:30 02/26/24 18:56 Temperature Temperature Source Pulse Rate 86 91 87 Respiratory Rate 15 15 25 H Respiratory Effort Respiratory Depth Respiratory Pattern Blood Pressure 158/88 H 135/70 H 118/70 Blood Pressure Mean 111 91 86 Pulse Ox 96 96 96 Oxygen Delivery Method Room Air Room Air Room Air MDM MDM MDM Narrative Medical decision making narrative: Patient is a 69-year-old female who presents to the emergency department chief complaint of fall down a set of stairs. On the differential diagnose includes but not limited to intracranial hemorrhage, concussion, cervical spine fracture, cardiac arrhythmia. Once workup is obtained reviewed she will be reevaluated. Patient will be given Tylenol. Patient's CT head and brain without contrast was reviewed and showed no evidence of acute intracranial pathology. Diffuse involutional changes and chronic ischemic's small vessel white matter disease. Patient CT cervical spine reviewed showed no evidence of acute cervical spine fracture or spondylolisthesis. Patient was attempted to be ambulated here in the emergency department around 1640 and noted that she stood up and was very off balance and was having difficulty with getting her balance. Nurse notified me of this and I immediately went back in and reexamined the patient. Once again the patient's NIH was 0 GCS 15 she was able to complete finger-nose test bilaterally however she states if she looks to the left she notes that she has difficulty focusing. I then added on blood work and a CT angiography of the head and neck. Patient will be reevaluated. Patient is not a tenecteplase candidate as she states that she fell around 1230 and 1300 and states that afterwards at that point time she was a little off balance but feels like this is worse now. She states that when she arrived here she had to have her 2 friends help her walk in here. Patient states that she woke up this morning around 9 AM and states that she laid in bed until 10:30 AM. States that she stood up and did her normal daily activity and was fine until she fell down the stairs at 12:30 PM. Once again the patient is not a tenecteplase candidate at this point time however we will do a large vessel occlusion workup. Patient CTA head and neck reviewed showed no significant stenosis, thrombosis aneurysm or dissection. On reevaluation the patient she states that she is feeling dizzy still and very unsteady on her feet and cannot ambulate without any assistance. Patient does live alone. At this point time do believe the patient will warrant admission for further evaluation management of her symptoms. Patient is agreeable this plan. Discussed case with hospitalist Dr. Arechiga who accept patient for admission. Patient notified all question concerns answered. Lab Data Labs: Laboratory Results - last 24 hr 02/26/24 02/26/24 02/26/24 15:39 16:50 18:10 WBC 8.1 RBC 3.90 L Hgb 11.4 L Hct 33.4 L MCV 85.6 MCH 29.2 MCHC 34.1 RDW Std Deviation 38.9 RDW Coeff of Fly 12.6 Plt Count 228 MPV 9.9 Immature Gran % (Auto) 0.400 Neut % (Auto) 66.7 Lymph % (Auto) 24.0 [place] % (Auto) 6.2 Eos % (Auto) 2.5 Baso % (Auto) 0.2 Absolute Neuts (auto) 5.4 Absolute Lymphs (auto) 1.95 Nucleated RBC % 0 Sodium 141 Potassium 3.0 L Chloride 110 H Carbon Dioxide 26.0 Anion Gap 6 BUN 11 Creatinine 0.73 Estim Creat Clear Calc 63.47 Est GFR (MDRD) Af Amer 102 Est GFR (MDRD) Non-Af 85 BUN/Creatinine Ratio 15.1 Glucose 130 H Calcium 9.2 Total Bilirubin 0.40 AST 14 L ALT 16 Alkaline Phosphatase 83 Total Protein 6.9 Albumin 3.7 Globulin 3.2 Albumin/Globulin Ratio 1.2 Urine Color Yellow Urine Clarity Clear Urine pH 7.0 Ur Specific [place] 1.005 Urine Protein 15 H Urine Glucose (UA) Normal Urine Ketones Negative Urine Occult Blood Negative Urine Nitrite Negative Urine Bilirubin Negative Urine Urobilinogen Normal Ur Leukocyte Esterase 25 H Urine RBC 0 SEEN Urine WBC 0-5 SEEN Ur Squamous Epith Cells 0 SEEN Urine Bacteria 0 SEEN Urine Mucus 0 SEEN Ur Drug Screen Comment Ethyl Alcohol POC Glucose 124 H 02/26/24 18:41 WBC RBC Hgb Hct MCV MCH MCHC RDW Std Deviation RDW Coeff of Fly Plt Count MPV Immature Gran % (Auto) Neut % (Auto) Lymph % (Auto) [place] % (Auto) Eos % (Auto) Baso % (Auto) Absolute Neuts (auto) Absolute Lymphs (auto) Nucleated RBC % Sodium Potassium Chloride Carbon Dioxide Anion Gap BUN Creatinine Estim Creat Clear Calc Est GFR (MDRD) Af Amer Est GFR (MDRD) Non-Af BUN/Creatinine Ratio Glucose Calcium Total Bilirubin AST ALT Alkaline Phosphatase Total Protein Albumin Globulin Albumin/Globulin Ratio Urine Color Urine Clarity Urine pH Ur Specific [place] Urine Protein Urine Glucose (UA) Urine Ketones Urine Occult Blood Urine Nitrite Urine Bilirubin Urine Urobilinogen Ur Leukocyte Esterase Urine RBC Urine WBC Ur Squamous Epith Cells Urine Bacteria Urine Mucus Ur Drug Screen Comment Ethyl Alcohol < 3.0 POC Glucose Radiography Diagnostic Testing: Clinical Impression(s) from Imaging Studies Brain CT 02/26/24 15:19 IMPRESSION: 1. No evidence of acute intracranial pathology. 2. Diffuse involutional changes and chronic ischemic small vessel white matter disease. A[employer] was utilized to assist in identifying pertinent positive findings. Electronically Signed: Trev Melendez MD at 16:21 EST Reading Location ID and State: [address] [place] [address] Tel , Service support , ADDENDUM: 02/26/24 1642 IMPRESSION: undefined Cervical Spine CT 02/26/24 15:19 IMPRESSION: No evidence of acute cervical spinal fracture or spondylolisthesis. [employer] was utilized to assist in identifying pertinent positive findings Electronically Signed: Trev Melendez MD at 16:28 EST Reading Location ID and State: [facility] / [place] Tel , Service support , Head/Neck CTA 02/26/24 17:06 IMPRESSION: No significant stenosis, thrombosis, aneurysm or dissection. Electronically Signed: Trev Melendez MD at 18:07 EST , Discharge Plan Triage Chief Complaint: Head Injury Other Complaint: Fall ED Provider: Rich Briggs Dx/Rx/DC Orders Clinical Impression: Fall, Dizziness, Unstable gait Prescriptions: No Action omeprazole 10 MG capsule 10 mg PO DAILY Patient Comments: gerd metformin 1,000 MG tablet 1,000 mg PO DAILY Patient Comments: diabetes albuterol sulfate [Ventolin HFA] 1 INHALER inhaler 1 puff inhalation Q6H PRN PRN (Reason: Sob &/Or Wheezing) Patient Comments: shortness of breath cholecalciferol (vitamin D3) 5,000 UNIT capsule 5,000 unit PO DAILY Patient Comments: supplement gabapentin [Neurontin] 300 MG capsule 300 mg PO QHS insulin glargine [Lantus Solostar U-100 Insulin] 100 UNIT/ML insulin pen 24 unit SQ QHS losartan 25 mg tablet 25 mg PO DAILY fluoxetine 10 mg capsule 20 mg PO DAILY montelukast 10 mg tablet 10 mg PO QHS ezetimibe 10 mg tablet 10 mg PO DAILY pravastatin 40 mg tablet 40 mg PO QHS trazodone 100 mg tablet 200 mg PO QHS Mounjaro 12.5 mg/0.5 mL pen injector 12.5 mg subcut FR Primary Care Provider: Marlon Jeffries Referrals: Marlon Jeffries DO [Primary Care Provider] - Print Language: Kyrgyz Disposition Disposition: Acute Care Hospital [facility]
[2024-02-26] MEDS: Acetaminophen 500 MG Tablet 1000 MG PO (15:39)
[2024-02-26 15:57] LABS: Bedside Glucose 124 mg/dL (74-106)
[2024-02-26] MEDS: 0.9% Normal Saline (1000mL) 1,000 ML 999 ML IV (16:49)
[2024-02-26 17:04] LABS: Absolute Lymphocyte Count 1.95 X10^3/uL (0.83-4.51); Absolute Neutrophil Count 5.4 X10^3/uL (2.0-7.7); Basophil# 0.02 X10^3/uL; Basophil% 0.2 % (0-1); Eosinophils% 2.5 % (0-5); Hematocrit 33.4 % (37-47); Hemoglobin 11.4 g/dL (12.0-15.0); Lymphocyte # 1.95 X10^3/ul (0.83-4.51); Mean Corp Hgb Conc 34.1 g/dL (32-36); Mean Corpuscular Hgb 29.2 pg (27.0-32.0); Mean Corpuscular Volume 85.6 fL (81-99); Mean Platelet Vol. 9.9 fl (6.2-12.0); Monocyte% 6.2 % (0-10); NRBC Flagged by Analyzer 0 % (0-5); Neutrophil # 5.42 X10^3/uL (2.7-7.7); Neutrophil % 66.7 % (47-70); Platelet Count 228 K/mm3 (150-450); RBC Distribution Width CV 12.6 % (11.6-14.6); RBC Distribution Width SD 38.9 fl (35.1-43.9); White Blood Count 8.1 K/mm3 (4.4-11.0)
--- NOTE | 2024-02-26 17:06 | CT_ITS ---
EXAM: CT ANGIOGRAPHY HEAD AND NECK WITH INTRAVENOUS CONTRAST CLINICAL INDICATION: difficultly ambulating TECHNIQUE: [place]/head and neck CT angiography protocol performed with intravenous contrast. CTDIvol = ( 21.51 ) mGy, DLP = ( 687.20 ) mGycm This CT exam was performed using one or more of the following dose reduction techniques: automated exposure control, adjustment of the mA and/or kV according to patient size, and/or use of iterative reconstruction technique. MIP reconstructed images were created and reviewed. CONTRAST: IV 100mL [id number] COMPARISON: 10/14/14 FINDINGS: HEAD: RIGHT ANTERIOR CEREBRAL ARTERY: Unremarkable. No occlusion or significant stenosis. Anterior communicating artery is present. No aneurysm. RIGHT MIDDLE CEREBRAL ARTERY: Unremarkable. No occlusion or significant stenosis. No aneurysm. RIGHT POSTERIOR CEREBRAL ARTERY: Unremarkable. No occlusion or significant stenosis. No aneurysm. RIGHT INTRACRANIAL INTERNAL CAROTID ARTERY: Unremarkable. No significant stenosis. No dissection or occlusion. RIGHT INTRACRANIAL VERTEBRAL ARTERY: Unremarkable. No significant stenosis. No dissection or occlusion. LEFT ANTERIOR CEREBRAL ARTERY: Unremarkable. No occlusion or significant stenosis. No aneurysm. LEFT MIDDLE CEREBRAL ARTERY: Unremarkable. No occlusion or significant stenosis. No aneurysm. LEFT POSTERIOR CEREBRAL ARTERY: Unremarkable. No occlusion or significant stenosis. No aneurysm. LEFT INTRACRANIAL INTERNAL CAROTID ARTERY: Unremarkable. No significant stenosis. No dissection or occlusion. LEFT INTRACRANIAL VERTEBRAL ARTERY: Unremarkable. No significant stenosis. No dissection or occlusion. BASILAR ARTERY: Unremarkable. No occlusion or significant stenosis. No aneurysm. OTHER VASCULATURE: No vascular malformation. NECK: RIGHT COMMON CAROTID ARTERY: Unremarkable. No significant stenosis. No dissection or occlusion. RIGHT EXTRACRANIAL INTERNAL CAROTID ARTERY: Unremarkable. No significant stenosis. No dissection or occlusion. RIGHT EXTERNAL CAROTID ARTERY: Unremarkable. No occlusion. RIGHT EXTRACRANIAL VERTEBRAL ARTERY: Unremarkable. No significant stenosis. No dissection or occlusion. LEFT COMMON CAROTID ARTERY: Unremarkable. No significant stenosis. No dissection or occlusion. LEFT EXTRACRANIAL INTERNAL CAROTID ARTERY: Unremarkable. No significant stenosis. No dissection or occlusion. LEFT EXTERNAL CAROTID ARTERY: Unremarkable. No occlusion. LEFT EXTRACRANIAL VERTEBRAL ARTERY: Unremarkable. No significant stenosis. No dissection or occlusion. BRACHIOCEPHALIC AND SUBCLAVIAN ARTERIES: Unremarkable as visualized. No occlusion or significant stenosis. LUNG APICES: Unremarkable as visualized. HEAD and NECK: BONES/JOINTS: Unremarkable. No discrete lytic or blastic abnormalities. No significant arthritic changes for age. No spondylolisthesis. SOFT TISSUES: Unremarkable. CAROTID STENOSIS REFERENCE USING NASCET CRITERIA: % ICA stenosis = (1 - narrowest ICA diameter/diameter of distal cervical ICA) x 100. Mild - <50% stenosis. Moderate - 50-69% stenosis. Severe - 70-94% stenosis. Near occlusion - 95-99% stenosis. Occluded - 100% stenosis. CT/CTA Head AND Neck W/ Contrast IMPRESSION: No significant stenosis, thrombosis, aneurysm or dissection. Electronically Signed: Trev Melendez MD at 18:07 EST ,
[2024-02-26 17:26] LABS: ALB/GLOB Ratio 1.2 RATIO (0.9-2.4); AST(SGOT) 14 U/L (15-37); Alanine Aminotransfer ALT/SGPT 16 U/L (13-56); Albumin, Serum 3.7 g/dL (3.2-5.0); Alkaline Phosphatase 83 U/L (45-117); Anion Gap 6 (5-15); BUN 11 mg/dL (7-18); BUN/Creat Ratio 15.1 RATIO (10-20); Calcium,Total 9.2 mg/dL (8.5-10.1); Chloride 110 mmol/L (98-107); Creatinine, Serum 0.73 mg/dL (0.55-1.02); EST Glomerular Filtration Rate 85 mL/min (>60); Est Glom Filt Rate - Afr Amer 102 mL/min (>60); Estimated Creatinine Clearance 63.47 ml/min; Globulin 3.2 g/dL (2.2-4.2); Glucose 130 mg/dL (74-106); Protein, Total 6.9 g/dL (6.4-8.2); Sodium Level 141 mmol/L (136-145)
[2024-02-26] MEDS: Potassium Chloride Oral Soln 20 MEQ/15 ML UDC 40 MEQ PO (18:07)
[2024-02-26 18:13] LABS: Bacteria 0 SEEN /hpf (None Seen); Mucous, Urine 0 SEEN /hpf (<or=2+); Red Blood Cells-Urine 0 SEEN /hpf (0-5); Squamous Epithelial Cells - UA 0 SEEN /hpf (5-10)
[2024-02-26 18:32] LABS: Color, Urine Yellow (Yellow); Glucose, Dipstick Normal (Normal); Ketone-Dipstick Negative (Negative); Leukocyte Esterase-Dipstick 25 /ul (Negative); Nitrite-Dipstick Negative (Negative); Occult Blood-Urine Negative /ul (Negative); Protein-Dipstick 15 mg/dl (Negative); Specific Gravity, Urine 1.005 (1.002-1.030); Urine Bilirubin Dipstick Negative (Negative); Urine Clarity Clear (Clear); Urine Urobilinogen Normal (Normal)
[2024-02-26 18:43] LABS: White Blood Cells 0-5 SEEN /hpf (0-5)
[2024-02-26 19:06] LABS: Alcohol, Blood (Medical)-Serum < 3.0 mg/dL
--- NOTE | 2024-02-26 19:12 | HP.PCM.HOS_ITS ---
[facility] - General General Date of Admission: 02/26/24 Date of Service: 02/26/24 Chief Complaint: Fall with inability to ambulate HPI Narrative ROOSEVELT ROJAS, is a 69 F who presented to [facility] ED on 02/26/2024 after a fall at home. Patient lives at home myself, is independent at baseline. She was taking laundry down the stairs early this afternoon when she tripped and fell, and she landed face first on the floor. She scraped up the left side of her face around her eye but denied any other areas of pain or bruising. Is not on any blood thinners. States she was able to get up after the fall. However, she had 2 friends bring her into the ED and she was having difficulty walking by that point. On arrival to the ED she was hemodynamically stable on room air. Labs were relatively unremarkable. CT brain and C-spine without contrast were unremarkable. They attempted to walk the patient after these tests but she felt very dizzy and off balance and was not able to ambulate at all. ED physician reassessed her and NIH score was 0 and GCS was 15. CTA head/neck was obtained and was unremarkable. However, given patient's inability to ambulate and that she lives alone, hospitalist was contacted for admission. I saw the patient at bedside in the ED. Patient was mildly fatigued appearing but otherwise sitting up comfortably in bed, conversing normally, in no acute distress. Patient states she was in her normal state of health over the past few days. No recent illnesses. She denies any lightheadedness or dizziness prior to falling today. However, she does note a history of lightheadedness/dizziness and intermittent vision issues in the past year with significant workup for this. Reviewed [facility] records. She had symptoms earlier this year and PT did not seem to help. Had an MRI brain without contrast in June that was unremarkable. She then saw her brake lining finisher who noted nystagmus and she was referred to a neuro bailiff at [facility]; saw this provider in mid October. Workup after that visit was unremarkable. Patient notes that nothing else has come from that workup since then. Has continued to have intermittent dizziness/lightheadedness and vision issues that she describes as a cloudiness of vision. In addition, patient unfortunately lost her within the last year and then her brother 2 days ago. She notes her sister is coming into town tomorrow night to spend some time with her before they go out to [facility] for the on Monday. Patient reports significant grief with these things and has a history of depression. Notes that she has lost about 30 pounds over the last 5 to 6 months from poor appetite. She has been on fluoxetine at same dose for the last year or so and is unsure if it is effective. She previously was on sertraline for a few years. She denies any suicidal ideation. No other acute concerns at this time. [facility] Home Medications ?Medication ?Instructions ?Recorded ?Last Taken ?Type albuterol sulfate 90 mcg/actuation 1 puff inhalation Q6H PRN PRN Sob 10/14/14 Unknown History aerosol inhaler (Ventolin HFA) &/Or Wheezing cholecalciferol (vitamin D3) 125 5,000 unit PO DAILY 10/14/14 02/26/24 History mcg (5,000 unit) capsule metformin 1,000 mg tablet 1,000 mg PO DAILY 10/14/14 02/26/24 History omeprazole 10 mg capsule,delayed 10 mg PO DAILY 10/14/14 02/26/24 History release gabapentin 300 mg capsule 300 mg PO QHS 09/02/16 02/25/24 History (Neurontin) insulin glargine 100 unit/mL (3 24 unit SQ QHS 09/02/16 02/25/24 History mL) subcutaneous pen (Lantus Solostar U-100 Insulin) ezetimibe 10 mg tablet 10 mg PO DAILY 02/26/24 02/26/24 History fluoxetine 10 mg capsule 20 mg PO DAILY 02/26/24 02/26/24 History losartan 25 mg tablet 25 mg PO DAILY 02/26/24 02/26/24 History montelukast 10 mg tablet 10 mg PO QHS 02/26/24 02/25/24 History pravastatin 40 mg tablet 40 mg PO QHS 02/26/24 02/25/24 History tirzepatide 12.5 mg/0.5 mL 12.5 mg subcut FR 02/26/24 02/23/24 History subcutaneous pen injector (Mounjaro) trazodone 100 mg tablet 200 mg PO QHS 02/26/24 02/25/24 History Allergy/AdvReac Type Severity Reaction Status Date / Time gluten Allergy Upset Verified 02/26/24 13:23 Stomach Penicillins (PCN) Allergy Rash Verified 02/26/24 13:23 Sulfa (Sulfonamide Allergy Rash Verified 02/26/24 13:23 Antibiotics) chocolate flavor AdvReac stuffiness Verified 02/26/24 13:23 Surgical History Hx of cataract surgery Hx of cardiac catheterization Social History household members: none Smoking Status: Never smoker substance use type: does not use ROS Constitutional Constitutional: Reports fatigue; Denies chills, fever(s) or weakness Eyes Eyes: Reports blurry vision and change in vision; Denies discharge from eye(s), double vision or loss of vision ENT HEENT: Denies nasal congestion, nasal discharge, sinus pressure or sore throat Cardiovascular Cardiovascular: Reports lightheadedness; Denies chest pain, palpitations, rapid heart rate or syncope Respiratory/Chest Respiratory/Chest: Denies cough, shortness of breath at rest or shortness of breath with exertion Gastrointestinal Gastrointestinal: Denies abdominal pain Genitourinary Genitourinary: Denies dysuria Musculoskeletal Musculoskeletal: Denies arthralgias or myalgias Neurologic Neurologic: Reports abnormal gait, disequilibrium, dizziness and headache(s); Denies abnormal speech, confusion, focal weakness, numbness or paresthesias Psychiatric Psychiatric: Reports depression; Denies anxiety or suicidal ideation Vital Signs Vital Signs Vital Signs: 02/26/24 13:24 02/26/24 15:45 02/26/24 15:45 Temperature 97.3 F L Temperature Source Oral Pulse Rate 73 78 Respiratory Rate 18 15 Respiratory Effort Normal Respiratory Depth Normal Respiratory Pattern Normal Blood Pressure 125/77 H 157/83 H Blood Pressure Mean 93 107 Pulse Ox 100 97 Oxygen Delivery Method Room Air Room Air 02/26/24 16:56 02/26/24 17:26 02/26/24 17:30 Temperature Temperature Source Pulse Rate 78 80 80 Respiratory Rate 15 19 H 19 H Respiratory Effort Respiratory Depth Respiratory Pattern Blood Pressure 132/85 H 162/84 H 162/84 H Blood Pressure Mean 100 110 110 Pulse Ox 96 98 98 Oxygen Delivery Method Room Air Room Air Room Air 02/26/24 18:00 02/26/24 18:30 02/26/24 18:56 Temperature Temperature Source Pulse Rate 86 91 87 Respiratory Rate 15 15 25 H Respiratory Effort Respiratory Depth Respiratory Pattern Blood Pressure 158/88 H 135/70 H 118/70 Blood Pressure Mean 111 91 86 Pulse Ox 96 96 96 Oxygen Delivery Method Room Air Room Air Room Air Weight Weight: 74.2 kg Body Mass Index (BMI) 29.9 Physical Exam Const alert, oriented x3 and no apparent distress Constitutional Narrative: Pleasant elderly female, overweight, mildly fatigued appearing, otherwise sitting up comfortably in bed, conversing normally, in no acute distress. General Appearance: cooperative and comfortable HEENT normocephalic, head/scalp atraumatic, hearing grossly normal bilaterally, nasal mucous membranes and turbinates normal and moist oral mucous membranes HEENT Narrative: Scrape noted on the left forehead above the eye and underneath the left eye. Eyes PERRL, EOMs intact bilaterally and conjunctivae normal Neck full ROM Chest inspection of chest normal Resp normal respiratory effort, normal air movement, no use of accessory muscles and clear to auscultation bilaterally Cardio regular rate, regular rhythm, no murmurs and peripheral pulses 2+ throughout GI normal to inspection, nondistended, normoactive bowel sounds, soft to palpation, non-tender and non-distended Back/Spine normal ROM Extremity normal to inspection, full ROM and no pedal edema Skin no rashes or lesions noted Neuro moves all extremities and no focal motor deficits Coordination / Balance: [id number] test normal and [id number] test normal Speech: speech normal Motor Exam: strength 5/5 throughout Psych mental status grossly normal Mood & Affect: depressed Results Lab / Micro Data 02/26/24 16:50 02/26/24 16:50 Labs: Laboratory Results - last 24 hr 02/26/24 15:39: POC Glucose 124 H 02/26/24 16:50: WBC 8.1, RBC 3.90 L, Hgb 11.4 L, Hct 33.4 L, MCV 85.6, MCH 29.2, MCHC 34.1, RDW Std Deviation 38.9, RDW Coeff of Fly 12.6, Plt Count 228, MPV 9.9, Immature Gran % (Auto) 0.400, Neut % (Auto) 66.7, Lymph % (Auto) 24.0, [place] % (Auto) 6.2, Eos % (Auto) 2.5, Baso % (Auto) 0.2, Absolute Neuts (auto) 5.4, Absolute Lymphs (auto) 1.95, Nucleated RBC % 0, Sodium 141, Potassium 3.0 L, C hloride 110 H, Carbon Dioxide 26.0, Anion Gap 6, BUN 11, Creatinine 0.73, Estim Creat Clear Calc 63.47, Est GFR (MDRD) Af Amer 102, Est GFR (MDRD) Non-Af 85, BUN/Creatinine Ratio 15.1, Glucose 130 H, Calcium 9.2, Total Bilirubin 0.40, AST 14 L, ALT 16, Alkaline Phosphatase 83, Total Protein 6.9, Albumin 3.7, Globulin 3.2, Albumin/Globulin Ratio 1.2 02/26/24 18:10: Urine Color Yellow, Urine Clarity Clear, Urine pH 7.0, Ur Specific [place] 1.005, Urine Protein 15 H, Urine Glucose (UA) Normal, Urine Ketones Negative, Urine Occult Blood Negative, Urine Nitrite Negative, Urine Bilirubin Negative, Urine Urobilinogen Normal, Ur Leukocyte Esterase 25 H, Urine RBC 0 SEEN, Urine WBC 0-5 SEEN, Ur Squamous Epith Cells 0 SEEN, Urine Bacteria 0 SEEN, Urine Mucus 0 SEEN 02/26/24 18:41: Ur Drug Screen Comment , Ethyl Alcohol < 3.0 Imaging Radiology Impression Brain CT 02/26/24 15:19 IMPRESSION: 1. No evidence of acute intracranial pathology. 2. Diffuse involutional changes and chronic ischemic small vessel white matter disease. A[employer] was utilized to assist in identifying pertinent positive findings. Electronically Signed: Trev Melendez MD at 16:21 EST Reading Location ID and State: [id number] Tel , Service support , ADDENDUM: 02/26/24 1642 IMPRESSION: undefined Cervical Spine CT 02/26/24 15:19 IMPRESSION: No evidence of acute cervical spinal fracture or spondylolisthesis. AIDOC was utilized to assist in identifying pertinent positive findings Electronically Signed: Trev Melendez MD at 16:28 EST Reading Location ID and State: [facility] / [place] Tel , Service support , Head/Neck CTA 02/26/24 17:06 IMPRESSION: No significant stenosis, thrombosis, aneurysm or dissection. Electronically Signed: Trev Melendez MD at 18:07 EST , Assessment & Plan Assessment/Plan (1) Fall: (2) Dizziness: (3) Unstable gait: PLAN: Plan Patient is a 69-year-old female who presented [facility] ED on 02/26/2024 after a fall at home. 1. Mechanical fall with difficulty with ambulation, history of intermittent dizziness with unstable gait ? [facility] PT/OT/case management consulted. Patient with intermittent dizziness with unstable gait over the past year, see HPI for further details. Has had extensive workup and seen multiple specialists without a diagnosis being made. CT head and C-spine without contrast and CTA head/neck unremarkable here. Suspect patient may have concussion after her fall with landing on her head that could be contributing to her symptoms. Hopeful that the patient will be okay for home with home health care tomorrow pending therapy recommendations. 2. Left facial abrasion ? Secondary to fall noted above. Scrape noted above and below the eye but no open wound noted and no need for any stitches or other intervention. Okay to monitor. 3. Mild hypokalemia ? Potassium 3.0 on admit. Mag and Phos ordered. Repleted potassium in the ED, follow-up a.m. potassium level. 4. Depression with bereavement ? See HPI for further details. Has history of depression, on fluoxetine 20 mg daily. within the last year and her brother 2 days ago. Patient's sister is coming into town tomorrow night and plan is for them to go to [facility] for brother's on Monday. Patient reports 30 pound weight loss in the past 6 months due to poor appetite, though notably she is on Mounjaro for diabetes. Has PCP appointment in the next week or 2 to discuss further. Continue home fluoxetine. Chronic medical conditions: ? Type 2 diabetes mellitus with neuropathy: Continue home Lantus at reduced dose of 16 units at night with sliding scale insulin with meals while inpatient, adjust as needed. A1c ordered. Hold home Mounjaro and metformin. Continue home gabapentin at night. ? History of nonobstructive CAD, hypertension, hyperlipidemia: Continue home losartan, ezetimibe, pravastatin. ? GERD: Continue home PPI. ? Asthma/allergies: Continue home montelukast and albuterol inhaler as needed. DVT prophylaxis: Lovenox CODE STATUS: Full code, verified Expected disposition: Home with home health care versus SNF, 1 to 2 days Total clinical time spent by myself addressing the patient's medical issues, reviewing all the data, and collaborating with patient's care team: 75 minutes. Charges/Coding Visit Charges Inpatient E&M: 94726 Init Hosp L3
[2024-02-26 19:21] LABS: Amphetamine Urine VISTA NEGATIVE (<1000 ng/mL); Barbiturate Urine VISTA NEGATIVE (< 200 ng/mL); Benzodiazepine Urine VISTA NEGATIVE (< 200 ng/mL); Cocaine Urine VISTA NEGATIVE (< 300 ng/mL); Ecstacy Urine VISTA NEGATIVE (< 500 ng/mL); Methadone Urine VISTA NEGATIVE (< 300 ng/mL); PCP Urine VISTA NEGATIVE (< 25 ng/mL); THC Urine VISTA NEGATIVE (< 50 ng/mL); Vista UDS pH Range 6
[2024-02-26 19:57] LABS: Phosphorus 2.6 mg/dL (2.5-4.9)
[2024-02-26] MEDS: Acetaminophen 325 MG Tablet 650 MG PO (20:57)
[2024-02-26] MEDS: Gabapentin 300 MG Capsule PO (20:57)
[2024-02-26] MEDS: traZODone 100 MG Tablet PO (20:58)
[2024-02-26] MEDS: Insulin Glargine-YFGN 100 UNIT/ML Pen 16 UNIT SC (20:59)
[2024-02-26] MEDS: Montelukast 10 MG Tablet PO (20:59)
[2024-02-26] MEDS: Pravastatin 40 MG Tablet PO (21:00)
[2024-02-26 21:28] LABS: Bedside Glucose 88 mg/dL (74-106)
[2024-02-26 22:23] LABS: Hemoglobin A1c 5.8 % (3.8-5.6)
[2024-02-27] MEDS: Acetaminophen 325 MG Tablet 650 MG PO (06:43)
[2024-02-27 06:57] LABS: Bedside Glucose 83 mg/dL (74-106)
[2024-02-27 07:00] VITALS: O2SAT 96
[2024-02-27 07:05] LABS: Mean Corp Hgb Conc 34.4 g/dL (32-36); Mean Corpuscular Hgb 29.6 pg (27.0-32.0); Mean Corpuscular Volume 86.3 fL (81-99); Mean Platelet Vol. 9.5 fl (6.2-12.0); Platelet Count 207 K/mm3 (150-450); RBC Distribution Width CV 12.7 % (11.6-14.6); RBC Distribution Width SD 40.3 fl (35.1-43.9); Red Blood Count 3.71 M/mm3 (4.2-5.4); White Blood Count 5.9 K/mm3 (4.4-11.0)
[2024-02-27 07:42] LABS: Anion Gap 4 (5-15); BUN 7 mg/dL (7-18); Calcium,Total 8.8 mg/dL (8.5-10.1); Chloride 113 mmol/L (98-107); Creatinine, Serum 0.63 mg/dL (0.55-1.02); EST Glomerular Filtration Rate 99 mL/min (>60); Est Glom Filt Rate - Afr Amer 120 mL/min (>60); Estimated Creatinine Clearance 61.35 ml/min; Glucose 94 mg/dL (74-106); Potassium 3.7 mmol/L (3.5-5.1); Sodium Level 143 mmol/L (136-145)
[2024-02-27 09:10] VITALS: BP 127/68; PULSE 79; RESP 16; TEMP 36.6; O2SAT 95
[2024-02-27] MEDS: Enoxaparin 40 MG/0.4 ML Syringe SC (09:24)
[2024-02-27] MEDS: Ezetimibe 10 MG Tablet PO (09:24)
[2024-02-27] MEDS: FLUoxetine 20 MG Capsule PO (09:24)
[2024-02-27] MEDS: Cholecalciferol (Vit D3) 125 MCG CAPSULE (5,000 UNITS) PO (09:25)
[2024-02-27] MEDS: Losartan Potassium 25 MG Tablet PO (09:25)
[2024-02-27] MEDS: Pantoprazole Sodium 20 MG Tablet PO (09:25)
[2024-02-27 11:30] LABS: Bedside Glucose 98 mg/dL (74-106)
--- NOTE | 2024-02-27 11:43 | DCINST_ITS ---
Discharge Instructions Diet Discharge Diet: - (Consistent carbohydrate diet) DC O2, CPAP, BIPAP needs Home O2 Discharge instructions: No Dressing / Incision Discharge Activity: May Not Drive (For 48 hours) and - (Light physical activities for an additional 24 hours before resuming light activity) Follow Up Care Test Results: Test results from this visit will be discussed in further detail at your follow- up appointment, if applicable. Discharge Plan Admission Admit Date/Time: 02/26/24 19:12 Primary Reason for Your Visit: Fall with dizziness Attending Provider: Lali Leal Primary Care Provider: Marlon Jeffries Consulting Providers: Festus Arechiga Instructions Patient Instructions: ED Fall Prevention Additional Instructions / Restrictions: DISCHARGE INSTRUCTIONS PLEASE READ *Please take this with you to your next doctors appointment* -Light physical activities for an additional 24 hours before resuming light activity -Advise against driving for 48 hours post concussion -Recommend decreasing your insulin to 20units until you meet with your doctor on , continue to monitor blood glucose -Please call your primary care provider's office upon discharge to schedule a hospital follow up within 1 week. -For any concerning signs or symptoms please call 911 or proceed to the nearest emergency department Discharge Orders/Prescriptions Prescriptions: Continued omeprazole 10 MG capsule 10 mg PO DAILY Patient Comments: gerd metformin 1,000 MG tablet 1,000 mg PO DAILY Patient Comments: diabetes albuterol sulfate [Ventolin HFA] 1 INHALER inhaler 1 puff inhalation Q6H PRN PRN (Reason: Sob &/Or Wheezing) Patient Comments: shortness of breath cholecalciferol (vitamin D3) 5,000 UNIT capsule 5,000 unit PO DAILY Patient Comments: supplement gabapentin [Neurontin] 300 MG capsule 300 mg PO QHS losartan 25 mg tablet 25 mg PO DAILY fluoxetine 10 mg capsule 20 mg PO DAILY montelukast 10 mg tablet 10 mg PO QHS ezetimibe 10 mg tablet 10 mg PO DAILY pravastatin 40 mg tablet 40 mg PO QHS trazodone 100 mg tablet 200 mg PO QHS Mounjaro 12.5 mg/0.5 mL pen injector 12.5 mg subcut FR Changed insulin glargine [Lantus Solostar U-100 Insulin] 100 UNIT/ML insulin pen 20 unit subcut QHS Qty: 15 0RF Referrals / Follow Up: Marlon Jeffries DO [Primary Care Provider] - Within 1 Week Disposition Disposition (needs filled in before D/C Order can be placed): Home, Self Care
--- NOTE | 2024-02-27 11:53 | PCM.DC.SUM ---
Providers Date of Admission: 02/26/24 Date of Discharge: 02/27/24 Primary Care Physician: Dr. Marlon Jeffries DO Reason For Visit: FALL Diagnosis Discharge Diagnosis (1) Fall: Status: Acute Code(s): W19.XXXA - Unspecified fall, initial encounter (2) Dizziness: Status: Acute Code(s): R42 - Dizziness and giddiness (3) Unstable gait: Status: Acute Code(s): R26.81 - Unsteadiness on feet Plan # Mechanical fall # Possible concussion # Chronic dizzy spells of unclear etiology # Diabetes type 2 # Bereavement # Hypertension # GERD Medications at Discharge Home Medications albuterol sulfate 90 mcg/actuation aerosol inhaler (Ventolin HFA) 1 puff inhalation Q6H PRN PRN Sob &/Or Wheezing 10/14/14 cholecalciferol (vitamin D3) 125 mcg (5,000 unit) capsule 5,000 unit PO DAILY 10/14/14 metformin 1,000 mg tablet 1,000 mg PO DAILY 10/14/14 omeprazole 10 mg capsule,delayed release 10 mg PO DAILY 10/14/14 gabapentin 300 mg capsule (Neurontin) 300 mg PO QHS 09/02/16 ezetimibe 10 mg tablet 10 mg PO DAILY 02/26/24 fluoxetine 10 mg capsule 20 mg PO DAILY 02/26/24 losartan 25 mg tablet 25 mg PO DAILY 02/26/24 montelukast 10 mg tablet 10 mg PO QHS 02/26/24 pravastatin 40 mg tablet 40 mg PO QHS 02/26/24 tirzepatide 12.5 mg/0.5 mL subcutaneous pen injector (Mounjaro) 12.5 mg subcut FR 02/26/24 trazodone 100 mg tablet 200 mg PO QHS 02/26/24 insulin glargine 100 unit/mL (3 mL) subcutaneous pen (Lantus Solostar U-100 Insulin) 20 unit (0.2 mL) subcut QHS #15 mL 02/27/24 Hospital Course Summary of Care Provided Minutes Spent on Discharge: 32 Hospital Course: 69-year-old female with history as above who presented [facility] 02/26/2024 after mechanical fall at home. In the ED CT brain and C-spine negative however when they went to walk patient she felt dizzy and off-balance so hospitalist contacted for admission. This a.m. patient feeling better, worked with therapy and did well, does have chronic dizzy spells and has undergone extensive workup and neurology evaluation with no underlying etiology identified. Possible the patient had mild concussion but presently not having any of the symptoms. Discussed home today versus tomorrow and given that patient is feeling better and worked well with therapy she is comfortable going home and reports she has a friend that lives close by that we will be able to help her if needed until family comes into town tomorrow. We discussed her glucose she reports she has been not eating well and that her insulin was decreased but she still been having glucoses below 100 and is not sure if this is contributing to her symptoms. She does have a PCP appointment on and is willing to decrease her insulin further to 20 units nightly while awaiting that appointment and to continue monitoring her blood sugars. Patient to resume other home medications. Patient with no new or acute concerns and reiterated that she was comfortable with discharge home Physical Exam Narrative General: Alert, oriented, no apparent distress HEENT: Does have some evidence of bruising on right side of face Eyes: Anicteric, normal conjunctiva, extraocular movements grossly intact Neck: Supple Respiratory: Clear to auscultation bilaterally, normal respiratory effort Cardiovascular: Regular rate and rhythm GI: Soft, nontender, nondistended Extremities: No edema Musculoskeletal: Moving all extremities Neuro: No overt focal neurological deficits Skin: No rashes appreciated Psych: Cooperative, somewhat restricted affect Weight / BMI Weight Weight: 69.2 kg Body Mass Index (BMI) 27.8 ABG / Lab / Microbiology Data 02/27/24 06:54 02/27/24 06:54 Laboratory: Laboratory Results - last 24 hr 02/26/24 15:39: POC Glucose 124 H 02/26/24 16:50: WBC 8.1, RBC 3.90 L, Hgb 11.4 L, Hct 33.4 L, MCV 85.6, MCH 29.2, MCHC 34.1, RDW Std Deviation 38.9, RDW Coeff of Fly 12.6, Plt Count 228, MPV 9.9, Immature Gran % (Auto) 0.400, Neut % (Auto) 66.7, Lymph % (Auto) 24.0, Ward % (Auto) 6.2, Eos % (Auto) 2.5, Baso % (Auto) 0.2, Absolute Neuts (auto) 5.4, Absolute Lymphs (auto) 1.95, Nucleated RBC % 0, Sodium 141, Potassium 3.0 L, Chloride 110 H, Carbon Dioxide 26.0, Anion Gap 6, BUN 11, Creatinine 0.73, Estim Creat Clear Calc 63.47, Est GFR (MDRD) Af Amer 102, Est GFR (MDRD) Non-Af 85, BUN/Creatinine Ratio 15.1, Glucose 130 H, Hemoglobin A1c 5.8 H, Calcium 9.2, Phosphorus 2.6, Magnesium 2.0, Total Bilirubin 0.40, AST 14 L, ALT 16, Alkaline Phosphatase 83, Total Protein 6.9, Albumin 3.7, Globulin 3.2, Albumin/Globulin Ratio 1.2 02/26/24 18:10: Urine Color Yellow, Urine Clarity Clear, Urine pH 7.0, Ur Specific D Hanis 1.005, Urine Protein 15 H, Urine Glucose (UA) Normal, Urine Ketones Negative, Urine Occult Blood Negative, Urine Nitrite Negative, Urine Bilirubin Negative, Urine Urobilinogen Normal, Ur Leukocyte Esterase 25 H, Urine RBC 0 SEEN, Urine WBC 0-5 SEEN, Ur Squamous Epith Cells 0 SEEN, Urine Bacteria 0 SEEN, Urine Mucus 0 SEEN 02/26/24 18:41: Urine Opiates Screen NEGATIVE, Urine Methadone Screen NEGATIVE, Ur Barbiturates Screen NEGATIVE, Ur Phencyclidine Scrn NEGATIVE, Ur Amphetamines Screen NEGATIVE, MDMA (Ecstasy) Screen NEGATIVE, U Benzodiazepines Scrn NEGATIVE, Urine Cocaine Screen NEGATIVE, U Cannabinoids Screen NEGATIVE, Ur Drug Screen Comment , Ethyl Alcohol < 3.0 02/26/24 20:55: POC Glucose 88 02/27/24 06:39: POC Glucose 83 02/27/24 06:54: WBC 5.9, RBC 3.71 L, Hgb 11.0 L, Hct 32.0 L, MCV 86.3, MCH 29.6, MCHC 34.4, RDW Std Deviation 40.3, RDW Coeff of Fly 12.7, Plt Count 207, MPV 9.5, Sodium 143, Potassium 3.7, Chloride 113 H, Carbon Dioxide 26.0, Anion Gap 4 L, BUN 7, Creatinine 0.63, Estim Creat Clear Calc 61.35, Est GFR (MDRD) Af Amer 120, Est GFR (MDRD) Non-Af 99, BUN/Creatinine Ratio 11.0, Glucose 94, Calcium 8.8 02/27/24 11:08: POC Glucose 98 Radiography Diagnostic Testing: Radiology Impression Brain CT 02/26/24 15:19 IMPRESSION: 1. No evidence of acute intracranial pathology. 2. Diffuse involutional changes and chronic ischemic small vessel white matter disease. AIDOC was utilized to assist in identifying pertinent positive findings. Electronically Signed: Trev Melendez MD at 16:21 EST Reading Location ID and State: [employer] / [place] Tel , Service support , ADDENDUM: 02/26/24 1642 IMPRESSION: undefined Cervical Spine CT 02/26/24 15:19 IMPRESSION: No evidence of acute cervical spinal fracture or spondylolisthesis. AIDOC was utilized to assist in identifying pertinent positive findings Electronically Signed: Trev Melendez MD at 16:28 EST Reading Location ID and State: [employer] / [place] Tel , Service support , Head/Neck CTA 02/26/24 17:06 IMPRESSION: No significant stenosis, thrombosis, aneurysm or dissection. Electronically Signed: Trev Melendez MD at 18:07 EST Reading Location ID and State: [employer] / [place] Tel , Service support , D/C Instructions Discharge Diet: - (Consistent carbohydrate diet) DC O2, CPAP, BIPAP Needs Home O2 Discharge instructions: No Meaningful Use Info Meaningful Use Meaningful Use Diagnoses (Choose all that apply): None applicable Ischemic Stroke Statin Dosing Therapy Reference: STATIN DOSE THERAPY REFERENCE: * Patients > 75 years receive moderate or high dose statin therapy. * Patients 75 years or YOUNGER should receive HIGH intensity statin dose unless contraindicated. You will be required to document reason for non-treatment if statin daily dose does not meet guidelines. HIGH DOSE STATIN THERAPY DAILY Atorvastatin > than or = to 40 mg Rosuvastatin > than or = to 20 mg Amlodipine + Atorvastatin > than or = to 2.5/40 mg Ezetimibe + Simvastatin 10/80 mg Simvastatin 80mg Discharge Plan Admission Admit Date/Time: 02/26/24 19:12 Primary Reason for Your Visit: Fall with dizziness Attending Provider: Lali Leal Primary Care Provider: Marlon Jeffries Consulting Providers: Festus Arechiga Instructions Patient Instructions: ED Fall Prevention Additional Instructions / Restrictions: DISCHARGE INSTRUCTIONS PLEASE READ *Please take this with you to your next doctors appointment* -Light physical activities for an additional 24 hours before resuming light activity -Advise against driving for 48 hours post concussion -Recommend decreasing your insulin to 20units until you meet with your doctor on , continue to monitor blood glucose -Please call your primary care provider's office upon discharge to schedule a hospital follow up within 1 week. -For any concerning signs or symptoms please call 911 or proceed to the nearest emergency department Discharge Orders/Prescriptions Prescriptions: Continued omeprazole 10 MG capsule 10 mg PO DAILY Patient Comments: gerd metformin 1,000 MG tablet 1,000 mg PO DAILY Patient Comments: diabetes albuterol sulfate [Ventolin HFA] 1 INHALER inhaler 1 puff inhalation Q6H PRN PRN (Reason: Sob &/Or Wheezing) Patient Comments: shortness of breath cholecalciferol (vitamin D3) 5,000 UNIT capsule 5,000 unit PO DAILY Patient Comments: supplement gabapentin [Neurontin] 300 MG capsule 300 mg PO QHS losartan 25 mg tablet 25 mg PO DAILY fluoxetine 10 mg capsule 20 mg PO DAILY montelukast 10 mg tablet 10 mg PO QHS ezetimibe 10 mg tablet 10 mg PO DAILY pravastatin 40 mg tablet 40 mg PO QHS trazodone 100 mg tablet 200 mg PO QHS Mounjaro 12.5 mg/0.5 mL pen injector 12.5 mg subcut FR Changed insulin glargine [Lantus Solostar U-100 Insulin] 100 UNIT/ML insulin pen 20 unit subcut QHS Qty: 15 0RF Referrals / Follow Up: Marlon Jeffries DO [Primary Care Provider] - Within 1 Week Disposition Disposition (needs filled in before D/C Order can be placed): Home, Self Care Charges/Coding Visit Charges Inpatient E&M: 06440 Disch Hosp >30min
--- NOTE | 2024-02-27 11:53 | CM.UR ---
Social Work SW met w/pt in regard to prior level of function and anticipated discharge plan. Pt lives home alone in a two story home with a basement. Pt is fully independent, uses no DME--though pt does have a walker, cane and bedside commode of her late 's. Pt has two daughters, Smiran who is in [place] and Clarissa in [place]. Clarissa is pt's POA, SW did let pt know we do not have the documents on file, she will try to get copies here. Pt does have friends nearby who are helpful, she plans to call her friend to pick her up today. Pt's PCP is Dr. Jeffries. Pt has never been to SNF or had home health in the past. We discussed discharge plan, pt agreeable for going home today. SW offered to make a [facility] referral, pt declined. Pt then went on to tell SW that her brother two days ago, her two and a half years ago. She states she has a to attend, her sisters are coming into town . She states this is reminding her of when she lost her , and seems aware that she is struggling w/grief. She also states has depression at her baseline. Pt also mentioned she has no appetite. She is on an appetite suppressant, but plans to speak to her doctor about lowering the dose. Pt is open to counseling, she has done bereavement counseling in the past. She would like [facility]. SW also spoke w/pt about home delivered meals, as pt states if food is put in front of her she will eat it. She may consider this. SW also spoke w/her about a life alert button, she is open to information. SW gave pt information on counseling resources, did identify three counseling agencies that are [facility] based. SW also gave pt information on home delivered meals and life alert button information. No further needs, pt home today. NATALEE Salinas
[2024-02-27] MEDS: Diphth,Pertuss(Acell),Tet Vac 0.5 ML Vial IM (12:11)
--- NOTE | 2024-02-27 12:32 | CASEMGMT ---
Social Work Pt confirmed that daughter Clarissa Mancia is her healthcare POA. Pt will try to get the paperwork here in the future. NATALEE Salinas
--- NOTE | 2024-02-27 13:07 | CHAPLAIN ---
Type of Pastoral Visit _x__ Initial Visit ___ Follow-up Visit ___ On-call Visit ___ General Patient Visit ___ Spiritual Assessment ___ Family Conference ___ Bereavement ___ Rapid Response ___ Code Blue ___ Other (describe below) Pastoral Care Referral From _x__ Patient ___ Family ___ Nurse ___ Physician _x__ Web Development Intern ___ Newscast Producer ___ Other (describe below) Sacrament/Intervention _x__ Active listening ___ Anointing ___ Christianity ___ Bereavement ___ Communion _x_ Cee exploration ___ _x__ Life review _x__ Prayer ___ Reconciliation ___ Sacrament of Sick ___ Supportive presence ___ Wedding ___ Other (describe below) Pastoral Comments Web Development Intern asked the patient and then notified this rail express clerk that a visit would be welcomed; pt is and recently endured the of her brother; met with patient who was willing to talk about her fall and her grief; pt soon acknowledges her cee in [place] and how that has been a big help in her life; pt has family coming in from out of town and she is unable to prepare for them but is willing to be helpful to them as she is able; pt acknowledges that this probably is a good thing to happen since I probably will benefit from the rest before many come to visit; pt is active in a local congregational and sees her role to be a witness of [place]; prayer and presence was welcomed; pt is vocal about keeping a positive attitude and being thankful for what God has given to her
== END 2024-02-27 14:09 | disposition home or self-care (01) ==
LOC: ED 19:15 → ICU 02-27 01:01
PROVIDERS: Admitting Provider Hospitalist; Emergency Provider Emergency Medicine; PCP Student in an Organized Health Care Education/Training Program; Visit Provider Internal Medicine
DX: S09.90XA Unspecified injury of head, initial encounter (principal); Z79.4 Long term (current) use of insulin; E11.9 Type 2 diabetes mellitus without complications; R42 Dizziness and giddiness; R26.81 Unsteadiness on feet; Z79.85 Long-term (current) use of injectable non-insulin antidiabetic drugs; K21.9 Gastro-esophageal reflux disease without esophagitis; Z79.84 Long term (current) use of oral hypoglycemic drugs; E78.5 Hyperlipidemia, unspecified; I10 Essential (primary) hypertension; W10.9XXA Fall (on) (from) unspecified stairs and steps, initial encounter; Y93.E2 Activity, laundry; Y92.008 Other place in unspecified non-institutional (private) residence as the place of occurrence of the external cause; Z79.899 Other long term (current) drug therapy; Z23 Encounter for immunization; Z63.4 Disappearance and death of family member; F32.A Depression, unspecified; J45.909 Unspecified asthma, uncomplicated; E87.6 Hypokalemia; S00.81XA Abrasion of other part of head, initial encounter
CPT/HCPCS: 36415; 70450; 70496; 70498; 72125; 80048; 80053; 80307; 81001; 82077; 82962; 83036; 83735; 84100; 85025; 85027; 90715; 93005; 96360; 96372; 97162; 97166; 99221; 99285; Q9967; A4216; G0378